=== PATIENT | male | born 1955 | race African-American/Black ===

== ENCOUNTER 2017-10-19 12:29 | Inpatient (IN) | payer BC ==
[~2017-10-19] VITALS: Ht 185.4 cm; Wt 106.6 kg
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
--- NOTE | ~2017-10-19 | CNG ---
[facility] [place] [address] CYTO-NONGYN REPORT PROCEDURE Name: ANUJ RAMIREZ Room #: 418-P ADM IN M.R.#: [id number] Admission: 10/19/17 Date of : 57 Discharge: Report #: [id number] Path Case #: [id number] CYTOPATHOLOGY REPORT COLLECTION DATE: 10/22/2017 RECEIVED DATE: 10/24/2017 SUBMITTING PHYS: Dr. Fadi Agarwal OTHER PHYS: Rickey Ibarra Dr. CLINICAL HISTORY: CAP, sepsis, LLL pneumonia SPECIMEN(S) RECEIVED: A.Sputum * * * * * * * * * * * * FINAL DIAGNOSIS: A. Sputum: - No malignant epithelial cells identified. Squamous epithelial cells and macrophages present. A properly controlled GMS stain is negative for Pneumocystis and negative for fungal elements. PATHOLOGIST: Irasema Andrade M.D. REPORT ELECTRONICALLY SIGNED BY: Irasema Andrade M.D. DATE/TIME: 10/25/2017 11:23 * * * * * * * * * * * * GROSS PATHOLOGY: A. Sputum: The specimen is submitted unfixed , labeled "Ana María Ramirezolph". Received by the Cytology Department is five mL of cloudy colorless fluid. One ThinPrep slide for pap stain and one ThinPrep slide for silver stain were prepared. (lg2.) CERTIFIED BREASTFEEDING EDUCATOR(S): DRAKE Resendez(ASCP)IAC INITIAL CPT CODE(S): A; 78580, 88363 Professional services performed by [facility] at [facility] [address], [place] [address] Technical services performed by [facility] at [address] [place] [address], [address] [address]. [facility] [address] [place] [address] CYTO-NONGYN REPORT PROCEDURE Name: ANUJ RAMIREZ Room #: 418-P ADM IN M.R.#: [id number] Admission: 10/19/17 Date of : 57 Discharge: Report #: [id number] Path Case #: [id number] [facility], [address] [place] [address] PHONE: [phone] DIRECTOR: Alek Quintero M.D. * * * END OF REPORT * * *
--- NOTE | ~2017-10-19 | CNG ---
[facility] [place] [address] CYTO-NONGYN REPORT PROCEDURE Name: JUAN JOSE RAMIREZ Room #: 418-P ADM IN M.R.#: [id number] Admission: 10/19/17 Date of : 57 Discharge: Report #: [id number] Path Case #: [id number] CYTOPATHOLOGY REPORT COLLECTION DATE: 10/26/2017 RECEIVED DATE: 10/26/2017 SUBMITTING PHYS: Dr. Fadi Agarwal OTHER PHYS: Grzegorz Mckeon M.D. Dr. Joyce Vogt CLINICAL HISTORY: CAP, sepsis, LLL pneumonia SPECIMEN(S) RECEIVED: A.Bronchial wash B.Brushing, CANDE * * * * * * * * * * * * FINAL DIAGNOSIS: A. Bronchial wash: - Atypical cells identified. - Occasional scattered atypical cells, bronchial epithelial cells, alveolar macrophages, and squamous cells present. Properly controlled GMS stain negative for Pneumocystis and negative for fungal elements. B. Brushing, CANDE: - Atypical cells identified. - Paucicellular specimen with rare atypical cells present amongst atypical squamous epithelial cells, bronchial epithelial cells, and scattered acute and chronic inflammatory cells. COMMENT: The patient has a history of "malignant cells identified consistent with adenocarcinoma of pulmonary origin" from a left upper lobe biopsy ([id number]). Clinical, radiographic, and bronchoscopic correlation is required. Newspaper Manager slides are co-reviewed with Dr. Christin Holman. (CLW:; 10/27/2017) PATHOLOGIST: Irasema Andrade M.D. REPORT ELECTRONICALLY SIGNED BY: Irasema Andrade M.D. DATE/TIME: 10/27/2017 15:44 * * * * * * * * * * * * GROSS PATHOLOGY: A. Bronchial wash: The specimen is submitted unfixed, labeled "Juan Jose Ramirez". Received by the Cytology Department is ten mL of cloudy colorless fluid. One ThinPrep slide for pap stain and one [facility] [address] [place] [address] CYTO-NONGYN REPORT PROCEDURE Name: NIRANJAN RAMIREZPH Room #: 418-P [facility] IN .R.#: [id number] Admission: 10/19/17 Date of : 57 Discharge: Report #: [id number] Path Case #: [id number] ThinPrep slide for silver stain were prepared. B. Brushing, CANDE: The specimen is labeled "Juan Jose Ramirez" and consists of one fixed slide. One brush tip in fixative is also submitted and one ThinPrep slide was prepared from this material. (lg 10.26.2017) CONTROL ENGINEER(S): DRAKE Law(ASCP) INITIAL CPT CODE(S): A; 51100, 84030 B; 99068 Professional services performed by [facility] at [facility] [address], [place] [address] Technical services performed by [facility] at [address] [place] [address], [address], [place] [address]. [facility] [address] [facility], [address] [place] [address] PHONE: [phone] DIRECTOR: Alek Quintero M.D. * * * END OF REPORT * * *
--- NOTE | ~2017-10-19 | HC ---
[facility] [place] [address] CONSULTATION Name: ASHLEYKIMBERLESLIE Room #: 418[facility] IN M.R.#: [id number] Admission: 10/19/17 Attend Phys: Grzegorz Mckeon MD Discharge: Date of : 57 Report #: [id number] THIS REPORT FOR: //name// CC: Gaurav Vogt DO PHYSICIAN REQUESTING CONSULT: Grzegorz Mckeon MD PHYSICIAN PROVIDING CONSULT: Luis Juárez MD REASON FOR CONSULTATION: History of stage 3 lung cancer. HISTORY OF PRESENT ILLNESS: The patient is a very pleasant 62-year-old male from the [place] [facility] region who quit smoking in 1992, was diagnosed with an adenocarcinoma of the left upper lobe back in 04/2017. This is an adenocarcinoma. The patient received chemotherapy with concurrent carboplatin, Taxol and radiation therapy from 07/11/2017 through 08/22/2017. He had a CAT scan in 09/2017, which showed good response to therapy, though some early cavitation of this lesion and possible cavitation of a smaller lesion. He began durvalumab immunotherapy for adjuvant therapy on 10/04/2017. About 3-5 days prior to admission, the patient had developed a fever and a cough. Since he has been here, CAT scan of the sinuses shows pansinusitis. He does have some drainage and he is aware of. He also thought there is a possible infection or inflammation, which maybe post-radiation therapy in his chest and also the cavitation of the upper lobe mass. No other definite metastatic disease is seen. I believe those films have already been requested for comparison. The patient is currently on 3 antibiotics including Zosyn, azithromycin and vancomycin. He is still running a temperature last night of 38. REVIEW OF SYSTEMS: The patient denies headache. Does have a fever, he is aware. No chills, no sweats, no weight loss, no sore throat except from coughing. No vision changes. He is aware of sinus pressure. He does have a slight cough, slightly productive, not much, little bit more since he got here. No nausea, no vomiting, no diarrhea, no constipation, no blood in his urine or stool. No skin rash. PAST MEDICAL HISTORY: Notable for the adenocarcinoma stage 3A (T2a N2 M0) cancer. Status post concurrent chemoradiation therapy completed in 08/2017 with initiation of durvalumab in 09/2017. He also has a history of hypertension, history of sinusitis. FAMILY HISTORY: No one else diagnosed with cancer that he is aware of with [address] [place] [address] CONSULTATION Name: ANUJ RAMIREZ Room #: 418-P [facility] IN M.R.#: [id number] Admission: 10/19/17 Attend Phys: Grzegorz Mckeon MD Discharge: Date of : 57 Report #: [id number] regards to mother, father, siblings or children. SOCIAL HISTORY: Quit smoking in 1992. Minimal alcohol use if I understand. No street drug use. Has worked in the [employer] in [place] [facility] [place] [employer] [facility] [place] [facility] for about 31 years. MEDICATIONS AT HOME: Included metoprolol, allopurinol, oxycodone, diphenhydramine and amlodipine. Here in the hospital, his current medications include ibuprofen 400 mg q.8 h. p.r.n., Zosyn 3.375 q.6 h., vancomycin 1 gram q.12 h., azithromycin 500 mg daily, metoprolol 50 daily, sucret type lozenges q.2 h. p.r.n., allopurinol 100 mg daily, Lovenox 40 mg at bedtime, Tylenol p.r.n., hydrocodone p.r.n., Zofran p.r.n. He also was begun on Tamiflu. LABORATORY REVIEW: Here shows a BUN of 13, creatinine of 1.1. Liver functions normal with an AST of 23, ALT of 15. Albumin 2.7. White count on admission 2.5, is currently 1.5; hemoglobin 10.5; MCV 102.2; platelets 102. Differential had metamyelocytes and atypical lymphocytes, ANC today is 0.6. Some other TB spot tests are pending. A respiratory viral PCR is pending. Histo tests are pending. ASSESSMENT AND PLAN: 1. History of stage 3A adenocarcinoma of the left upper lung, status post concurrent chemoradiation therapy completed in 08/2017, now on durvalumab, not known to be progressive or recurrent. 2. Febrile illness with cavitary lung lesion and pansinusitis on 3 antibiotics. Culture is pending. No tentative plans for bronchoscopy on Tuesday, if not better. 3. Worsening cytopenia, may be related to viral illness, especially given atypical lymphocytes on smear. We will have the patient be on protective isolation and continue monitoring. 4. Hypertension. Continues medications. 5. Possible gout. We will need to clarify. Continues allopurinol. 6. Cavitary lung lesion. Note additional workup underway. We will follow with you. <ELECTRONICALLY SIGNED> By: Luis Juárez MD 10/23/17 0814 1 2209 Luis Juárez MD /inocente
[~2017-10-19 12:29] MED LIST: ALLOPURINOL 10100 M1 PO; ALLOPURINOL 10100 M2 PO; ALLOPURINOL 30300 M1 PO; AMLODIPINE BESYL5 M1 PO; AMOXICILLIN 50500 M1 PO; BENADRYL25 MG PO; COZAAR 25 MG TA25 M1 PO; HYDROXY-CUT PO; LEVOFLOXACIN500 MG PO; LISINOPRIL10 MG PO; MULTI VITAMIN1 EACH PO; PERCOCET PO; PHENERGAN 25 MG25 M1 PO
[2017-10-19 12:36] VITALS: BP 132/90
[2017-10-19] MEDS ORDERED: TOPROL XL50 MG PO (13:05)
[2017-10-19 13:51] LABS: HEMATOCRIT 30.1 % (42.0-52.0); HEMOGLOBIN 10.4 gm/dL (14.0-18.0); MCH 35.7 pg (26.0-34.0); MCHC 34.6 g/dL (28.0-37.0); MCV 103.1 fL (80.0-100.0); PLATELET COUNT 117 thou/uL (150-400); RBC 2.92 mil/uL (4.50-6.00); RDW 14.6 % (10.5-14.5); WBC 2.5 thou/uL (4.0-11.0)
[2017-10-19 14:03] LABS: CALCIUM 8.7 mg/dL (8.5-10.1); CREATININE 1.2 mg/dL (0.7-1.3); POTASSIUM 3.8 mmol/L (3.5-5.1)
[2017-10-19 14:09] LABS: ALBUMIN 3.1 g/dL (3.4-5.0); TOTAL BILIRUBIN 0.5 mg/dL (<0.1-1.0); TOTAL PROTEIN 6.5 g/dL (6.4-8.2)
[2017-10-19 14:41] LABS: ABSOLUTE NEUTROPHILS 1.2 thou/uL (1.4-8.2)
[2017-10-19 14:42] LABS: ANISOCYTOSIS 1+; PLATELET ESTIMATE NORMAL
[2017-10-19 15:21] VITALS: BP 113/78
[2017-10-19 15:50] VITALS: BP 118/64
[2017-10-19 16:07] VITALS: BP 116/76
[2017-10-19 19:26] VITALS: BP 125/79
[2017-10-20 03:51] VITALS: BP 114/69
[2017-10-20 05:23] LABS: HEMATOCRIT 28.6 % (42.0-52.0); HEMOGLOBIN 9.9 gm/dL (14.0-18.0); MCH 35.6 pg (26.0-34.0); MCHC 34.5 g/dL (28.0-37.0); MCV 103.4 fL (80.0-100.0); RBC 2.77 mil/uL (4.50-6.00); RDW 14.5 % (10.5-14.5); WBC 2.5 thou/uL (4.0-11.0)
[2017-10-20 05:43] LABS: ALBUMIN 2.7 g/dL (3.4-5.0); CALCIUM 8.6 mg/dL (8.5-10.1); CREATININE 1.1 mg/dL (0.7-1.3); POTASSIUM 3.7 mmol/L (3.5-5.1); TOTAL BILIRUBIN 0.4 mg/dL (<0.1-1.0); TOTAL PROTEIN 5.9 g/dL (6.4-8.2)
[2017-10-20 07:20] VITALS: BP 100/66
[2017-10-20 13:55] VITALS: BP 120/68
[2017-10-20 19:22] VITALS: BP 107/72
[2017-10-21 04:19] VITALS: BP 118/70
[2017-10-21 05:01] LABS: MCV 103.5 fL (80.0-100.0); WBC 2.9 thou/uL (4.0-11.0)
[2017-10-21 05:03] LABS: HEMATOCRIT 29.6 % (42.0-52.0); HEMOGLOBIN 10.4 gm/dL (14.0-18.0); MCH 36.3 pg (26.0-34.0); PLATELET COUNT 113 thou/uL (150-400); RBC 2.86 mil/uL (4.50-6.00); RDW 14.3 % (10.5-14.5)
[2017-10-21 06:59] LABS: ABSOLUTE NEUTROPHILS 1.5 thou/uL (1.4-8.2); ANISOCYTOSIS 1+; ATYPICAL LYMPHS 1 %; LARGE PLATELETS RARE; MACROCYTES 1+; METAMYELOCYTES 1 %; POLYCHROMASIA OCCASIONAL
[2017-10-21 07:43] VITALS: BP 111/73
[2017-10-21 16:08] VITALS: BP 99/64
[2017-10-21 19:41] VITALS: BP 108/64
[2017-10-22] VITALS: BP 113/69; BP 77/45
[2017-10-22 04:15] VITALS: BP 97/66
[2017-10-22 06:28] LABS: HEMATOCRIT 30.1 % (42.0-52.0); HEMOGLOBIN 10.5 gm/dL (14.0-18.0); MCH 35.8 pg (26.0-34.0); MCHC 35.1 g/dL (28.0-37.0); MCV 102.2 fL (80.0-100.0); PLATELET COUNT 102 thou/uL (150-400); RBC 2.94 mil/uL (4.50-6.00); RDW 14.7 % (10.5-14.5)
[2017-10-22 06:30] LABS: WBC 1.5 thou/uL (4.0-11.0)
[2017-10-22 08:00] VITALS: BP 105/79
[2017-10-22 08:34] LABS: ABSOLUTE NEUTROPHILS 0.6 thou/uL (1.4-8.2); ANISOCYTOSIS 1+; ATYPICAL LYMPHS 2 %; METAMYELOCYTES 2 %
[2017-10-22 15:56] VITALS: BP 111/66
[2017-10-22 19:35] VITALS: BP 116/79
[2017-10-23 03:20] VITALS: BP 95/59
[2017-10-23 05:47] LABS: ALBUMIN 2.5 g/dL (3.4-5.0); CALCIUM 8.7 mg/dL (8.5-10.1); POTASSIUM 3.8 mmol/L (3.5-5.1); TOTAL BILIRUBIN 0.4 mg/dL (<0.1-1.0); TOTAL PROTEIN 5.7 g/dL (6.4-8.2)
[2017-10-23 07:55] VITALS: BP 105/72
[2017-10-23 15:43] VITALS: BP 96/67
[2017-10-23 19:45] VITALS: BP 103/60
[2017-10-23 21:44] LABS: T-SPOT.TB Negative
[2017-10-24 03:14] VITALS: BP 99/42
[2017-10-24 05:37] LABS: HEMATOCRIT 28.5 % (42.0-52.0); MCH 35.5 pg (26.0-34.0); MCV 101.6 fL (80.0-100.0); PLATELET COUNT 108 thou/uL (150-400); RDW 14.7 % (10.5-14.5)
[2017-10-24 05:52] LABS: ALBUMIN 2.5 g/dL (3.4-5.0); CALCIUM 8.6 mg/dL (8.5-10.1); CREATININE 1.1 mg/dL (0.7-1.3); POTASSIUM 3.6 mmol/L (3.5-5.1); TOTAL BILIRUBIN 0.4 mg/dL (<0.1-1.0); TOTAL PROTEIN 6.1 g/dL (6.4-8.2)
[2017-10-24 07:27] VITALS: BP 88/56
[2017-10-24 08:55] LABS: PLATELET ESTIMATE DECREASED
[2017-10-24 19:27] VITALS: BP 115/74
[2017-10-24 21:09] LABS: HISTOPLASMA MYCELIAL-ID Negative (Negative)
[2017-10-25 02:59] VITALS: BP 107/74
[2017-10-25 03:06] LABS: ADENOVIRUS Positive (Negative); INFLUENZA A Negative (Negative); INFLUENZA B Negative (Negative); METAPNEUMOVIRUS Negative (Negative); PARAINFLUENZA 1 Negative (Negative); PARAINFLUENZA 2 Negative (Negative); PARAINFLUENZA 3 Negative (Negative); RHINOVIRUS Negative (Negative); RSV A Negative (Negative); RSV B Negative (Negative)
[2017-10-25 04:47] LABS: HEMOGLOBIN 10.4 gm/dL (14.0-18.0)
[2017-10-25 04:49] LABS: HEMATOCRIT 29.6 % (42.0-52.0); MCH 35.4 pg (26.0-34.0); MCHC 35.2 g/dL (28.0-37.0); MCV 100.6 fL (80.0-100.0); PLATELET COUNT 118 thou/uL (150-400); RBC 2.94 mil/uL (4.50-6.00); RDW 14.4 % (10.5-14.5)
[2017-10-25 05:01] LABS: WBC 1.6 thou/uL (4.0-11.0)
[2017-10-25 06:31] LABS: ABSOLUTE NEUTROPHILS 0.6 thou/uL (1.4-8.2)
[2017-10-25 08:21] VITALS: BP 107/67
[2017-10-25 12:40] VITALS: BP 103/71
[2017-10-25 17:32] VITALS: BP 104/70
[2017-10-25 19:30] VITALS: BP 112/69
[2017-10-26] VITALS: BP 96/52
[2017-10-26 04:34] LABS: BASOPHILS 0.3 % (0.0-2.0); EOSINOPHILS 0.3 % (0.0-3.0); HEMATOCRIT 29.2 % (42.0-52.0); HEMOGLOBIN 10.1 gm/dL (14.0-18.0); LYMPHOCYTES 45.2 % (24.0-44.0); MCHC 34.6 g/dL (28.0-37.0); MCV 100.9 fL (80.0-100.0); MONOCYTES 13.8 % (1.0-8.0); PLATELET COUNT 121 thou/uL (150-400); POLYS 40.4 % (36.0-66.0); RBC 2.89 mil/uL (4.50-6.00); RDW 14.2 % (10.5-14.5); WBC 2.5 thou/uL (4.0-11.0)
[2017-10-26 05:22] LABS: ATYPICAL LYMPHS 1 %
[2017-10-26 05:23] VITALS: BP 105/71
[2017-10-26 05:23] LABS: LARGE PLATELETS OCCASIONAL
[2017-10-26 09:45] VITALS: BP 118/83
[2017-10-26 17:00] VITALS: BP 101/66
[2017-10-26 20:21] VITALS: BP 106/56
[2017-10-27 04:00] VITALS: BP 91/61
[2017-10-27 04:06] LABS: HEMATOCRIT 29.5 % (42.0-52.0); HEMOGLOBIN 10.2 gm/dL (14.0-18.0); MCH 34.6 pg (26.0-34.0); MCHC 34.5 g/dL (28.0-37.0); MCV 100.2 fL (80.0-100.0); PLATELET COUNT 130 thou/uL (150-400); RBC 2.95 mil/uL (4.50-6.00); RDW 13.8 % (10.5-14.5); WBC 2.1 thou/uL (4.0-11.0)
[2017-10-27 05:18] LABS: ABSOLUTE NEUTROPHILS 1.1 thou/uL (1.4-8.2); ATYPICAL LYMPHS 2 %
[2017-10-27 07:13] VITALS: BP 117/75
[2017-10-27 16:00] VITALS: BP 100/63
[2017-10-27 20:00] VITALS: BP 94/52
[2017-10-27 23:32] VITALS: BP 101/68
[2017-10-28 04:25] VITALS: BP 109/70
[2017-10-28 08:53] LABS: HEMATOCRIT 32.8 % (42.0-52.0); HEMOGLOBIN 11.4 gm/dL (14.0-18.0); MCH 34.5 pg (26.0-34.0); MCHC 34.7 g/dL (28.0-37.0); MCV 99.4 fL (80.0-100.0); PLATELET COUNT 135 thou/uL (150-400); RDW 14.3 % (10.5-14.5); WBC 2.2 thou/uL (4.0-11.0)
[2017-10-28 09:27] LABS: ABSOLUTE NEUTROPHILS 0.7 thou/uL (1.4-8.2)
[2017-10-28 09:28] LABS: PLATELET ESTIMATE NORMAL
[2017-10-28 20:14] VITALS: BP 113/72
[2017-10-29 03:54] VITALS: BP 94/65
[2017-10-29 06:51] LABS: HEMATOCRIT 28.2 % (42.0-52.0); HEMOGLOBIN 10.1 gm/dL (14.0-18.0); MCH 35.3 pg (26.0-34.0); RBC 2.85 mil/uL (4.50-6.00)
[2017-10-29 06:53] LABS: MCHC 35.7 g/dL (28.0-37.0); MCV 98.7 fL (80.0-100.0); RDW 14.2 % (10.5-14.5)
[2017-10-29 07:05] VITALS: BP 113/76
[2017-10-29 07:14] LABS: WBC 1.7 thou/uL (4.0-11.0)
[2017-10-29 14:53] VITALS: BP 101/66
[2017-10-29 20:00] VITALS: BP 109/64
[2017-10-30 04:00] VITALS: BP 113/78
[2017-10-30 06:05] LABS: PLATELET COUNT 126 thou/uL (150-400)
[2017-10-30 06:11] LABS: HEMATOCRIT 27.7 % (42.0-52.0); HEMOGLOBIN 9.9 gm/dL (14.0-18.0); MCH 35.2 pg (26.0-34.0); MCHC 35.6 g/dL (28.0-37.0); MCV 98.7 fL (80.0-100.0); RDW 14.7 % (10.5-14.5)
[2017-10-30 06:15] LABS: WBC 1.6 thou/uL (4.0-11.0)
[2017-10-30 06:19] LABS: CREATININE 0.9 mg/dL (0.7-1.3); POTASSIUM 3.6 mmol/L (3.5-5.1)
[2017-10-30 06:24] LABS: CALCIUM 8.8 mg/dL (8.5-10.1)
[2017-10-30 07:44] VITALS: BP 106/72
[2017-10-30 09:36] LABS: ABSOLUTE NEUTROPHILS 0.8 thou/uL (1.4-8.2); ANISOCYTOSIS 1+; ATYPICAL LYMPHS 2 %
[2017-10-30 09:37] LABS: PLATELET ESTIMATE DECREASED
[2017-10-30 15:19] VITALS: BP 94/62
[2017-10-30 19:35] VITALS: BP 101/70
[2017-10-31 04:00] VITALS: BP 107/73
[2017-10-31 05:26] LABS: HEMATOCRIT 28.6 % (42.0-52.0); MCH 34.5 pg (26.0-34.0); MCV 98.5 fL (80.0-100.0); RBC 2.91 mil/uL (4.50-6.00); RDW 14.3 % (10.5-14.5)
[2017-10-31 05:32] LABS: WBC 1.7 thou/uL (4.0-11.0)
[2017-10-31 07:05] VITALS: BP 93/65
[2017-10-31 08:23] LABS: % SATURATION 29 % (20-39); IRON 43 ug/dL (65-175); TIBC 150 ug/dL (250-450)
[2017-10-31 10:23] LABS: FOLIC ACID 20.2 ng/mL (8.6-58.9)
[2017-10-31 15:36] VITALS: BP 96/63
[2017-10-31 19:20] VITALS: BP 99/66
[2017-11-01 04:15] VITALS: BP 105/63
[2017-11-01 07:51] VITALS: BP 110/73
[2017-11-01 17:29] VITALS: BP 141/116
[2017-11-01 17:47] VITALS: BP 111/74
[2017-11-01 20:00] VITALS: BP 107/70
[2017-11-02 04:00] VITALS: BP 116/74
[2017-11-02 07:55] VITALS: BP 98/63
[2017-11-02 11:07] LABS: ANTI-DNA SCREEN <1 IU/mL (0-9); ANTI-RNP 0.2 AI (0.0-0.9)
[2017-11-02 15:20] VITALS: BP 107/70
[2017-11-02 20:00] VITALS: BP 104/72
[2017-11-03 04:30] VITALS: BP 91/57
[2017-11-03 05:59] LABS: HEMOGLOBIN 10.2 gm/dL (14.0-18.0)
[2017-11-03 06:01] LABS: HEMATOCRIT 29.3 % (42.0-52.0); MCH 34.6 pg (26.0-34.0); MCHC 34.8 g/dL (28.0-37.0); MCV 99.5 fL (80.0-100.0); PLATELET COUNT 150 thou/uL (150-400); RBC 2.94 mil/uL (4.50-6.00); RDW 14.2 % (10.5-14.5)
[2017-11-03 06:04] LABS: WBC 1.9 thou/uL (4.0-11.0)
[2017-11-03 08:37] VITALS: BP 103/71
[2017-11-03 08:45] LABS: ABSOLUTE NEUTROPHILS 0.9 thou/uL (1.4-8.2)
[2017-11-03 08:46] LABS: ANISOCYTOSIS 1+
[2017-11-03] MEDS ORDERED: AZITHROMYCIN 2250 MG PO (12:46)
[2017-11-03] MEDS ORDERED: DIPHENHIST25 M1 PO (12:46)
[2017-11-03] MEDS ORDERED: OSELB75 PO (12:46)
[2017-11-03] MEDS ORDERED: CEPACOL SORE T1 EAC8 PO (12:46)
[2017-11-03] MEDS ORDERED: CEFDINIR300 MG PO (12:46)
[2017-11-03] MEDS ORDERED: MUCINEX600 MG PO (12:46)
[2017-11-03] MEDS ORDERED: TYLENOL325 MG PO (12:46)
[2017-11-03] MEDS ORDERED: PEPCID20 MG PO (12:46)
[2017-11-03] MEDS ORDERED: PREDNISONE 10 M10 MG PO (12:46)
[2017-11-03 13:13] VITALS: BP 103/71
== END 2017-11-03 14:25 | disposition home or self-care (01) | DRG 871 ==
LOC: ER 12:29 → 4E 14:19 → EROBS 14:19 → 4E 15:13 → ENTRNSPT 11-03 13:58 → EDTRNSPTSTS 11-03 14:24 → 4E 11-03 14:25
PROVIDERS: Hospitalist; Internal Medicine Hematology & Oncology; Internal Medicine Pulmonary Disease; Nurse Practitioner; Specialist
PROC: 0BD88ZX Extraction of Left Upper Lobe Bronchus, Via Natural or Artificial Opening Endoscopic, Diagnostic (ICD-10-PCS; principal; 2017-10-26)
DX: A41.9 Sepsis, unspecified organism (principal); J10.08 Influenza due to other identified influenza virus with other specified pneumonia; J12.0 Adenoviral pneumonia; D61.818 Other pancytopenia; E46 Unspecified protein-calorie malnutrition; C34.12 Malignant neoplasm of upper lobe, left bronchus or lung; I10 Essential (primary) hypertension; D75.9 Disease of blood and blood-forming organs, unspecified; J32.4 Chronic pansinusitis; R91.8 Other nonspecific abnormal finding of lung field; M10.9 Gout, unspecified; Z79.899 Other long term (current) drug therapy; Z87.891 Personal history of nicotine dependence; Z68.31 Body mass index [BMI] 31.0-31.9, adult; Z92.3 Personal history of irradiation; Z92.21 Personal history of antineoplastic chemotherapy
CPT/HCPCS: 10783

== ENCOUNTER 2018-03-30 10:16 | Emergency (ER) | payer BC ==
[~2018-03-30] VITALS: Ht 185.4 cm; Wt 108.0 kg
[~2018-03-30 10:16] MED LIST changes: +AZITHROMYCIN 2250 MG PO; +CEFDINIR300 MG PO; +CEPACOL SORE T1 EAC8 PO; +DIPHENHIST25 M1 PO; +MUCINEX600 MG PO; +OSELB75 PO; +PEPCID20 MG PO; +PREDNISONE 10 M10 MG PO; +TOPROL XL50 MG PO; +TYLENOL325 MG PO
[2018-03-30 11:05] LABS: HEMATOCRIT 36.1 % (42.0-52.0); HEMOGLOBIN 12.7 gm/dL (14.0-18.0); MCH 35.4 pg (26.0-34.0); MCHC 35.1 g/dL (28.0-37.0); MCV 100.8 fL (80.0-100.0); RBC 3.58 mil/uL (4.50-6.00); RDW 14.5 % (10.5-14.5); WBC 2.9 thou/uL (4.0-11.0)
[2018-03-30 11:08] LABS: CALCIUM 9.4 mg/dL (8.5-10.1); CREATININE 1.3 mg/dL (0.7-1.3)
[2018-03-30 12:06] LABS: ABSOLUTE NEUTROPHILS 1.9 thou/uL (1.4-8.2); PLATELET COUNT 88 thou/uL (150-400); PLATELET ESTIMATE DECREASED
[2018-03-30] MEDS ORDERED: LEVAQUIN 500 M500 MG PO (12:36)
[2018-03-30] MEDS ORDERED: PROMETH-CODEIN 65 ML PO (12:36)
== END 2018-03-30 12:49 | disposition home or self-care (01) ==
LOC: ER 10:16
PROVIDERS: Emergency Medicine
DX: J20.9 Acute bronchitis, unspecified (principal); D69.6 Thrombocytopenia, unspecified; I10 Essential (primary) hypertension; M10.9 Gout, unspecified; Z85.118 Personal history of other malignant neoplasm of bronchus and lung

== ENCOUNTER → 2018-06-20 | Outpatient (CLI) | payer BC ==
[~2018-06-20] MED LIST changes: +LEVAQUIN 500 M500 MG PO; +PROMETH-CODEIN 65 ML PO
== END ==
LOC: RAD 14:11
DX: C34.12 Malignant neoplasm of upper lobe, left bronchus or lung (principal); R05 Cough; R91.8 Other nonspecific abnormal finding of lung field; M47.814 Spondylosis without myelopathy or radiculopathy, thoracic region; I10 Essential (primary) hypertension

== ENCOUNTER 2018-11-07 16:02 | Inpatient (IN) | payer BC ==
[~2018-11-07] VITALS: Ht 185.4 cm; Wt 113.0 kg
--- NOTE | ~2018-11-07 | P ---
[facility] [place] [address] PROCEDURE REPORT Name: ANUJ RAMIREZ Room #: [address] [place] [address] IN M.R.#: [id number] Admission: 11/07/18 ������������������ Attend Phys: Rock Arrington MD Discharge: 11/09/18 ������������������ Date of : 57 Report #: [id number] THIS REPORT FOR: //name// CC: Yo Reed MD DATE OF SERVICE: 11/09/2018 DIAGNOSTIC COLONOSCOPY: The patient of Joyce Vogt DO and Rock Arrington MD. INDICATION FOR PROCEDURE: Painless hematochezia of undetermined etiology. DESCRIPTION OF PROCEDURE: Informed consent for this procedure was obtained prior to the administration of any medication. The risks which include but are not limited to bleeding, perforation, infection, complications of sedation and the possibility I could miss something were explained to the patient and he has indicated his consent by signing. Anesthesia kindly provided deep sedation for this procedure. With the patient in the left lateral decubitus position, a digital rectal exam was performed and there were no palpable abnormalities. Then, the Olympus colonoscope was introduced through the anal sphincter and advanced under direct visualization to the terminal ileum. Findings are noted on withdrawal of the scope. The terminal ileal mucosa appears normal. The cecum appears normal. There was some retained stool in the cecum that was able to be cleared by the scope for good visualization. In the proximal ascending colon, there are multiple uncomplicated diverticula noted. None of them appear to have been bleeding recently. There is no blood in the entire colon. The more distal ascending colonic mucosa appears normal. Hepatic flexure, normal mucosa. Transverse colon, normal mucosa. Splenic flexure, normal mucosa. Descending colon, normal mucosa. Sigmoid colon, normal mucosa. Rectum, normal mucosa. There are several large internal hemorrhoidal veins. Retroflex view did not reveal any further abnormalities. Scope was slowly withdrawn through the anal canal and there was a single external hemorrhoid that may have been the source of some hematochezia. The scope was withdrawn. The patient went to the recovery area in stable condition. He tolerated the procedure well. IMPRESSION: 1. Uncomplicated right-sided diverticulosis. 2. Single uncomplicated external hemorrhoid, which may have been the source of [address] [address] PROCEDURE REPORT Name: NIRANJAN RAMIREZPH Room #: [facility] DIS IN M.R.#: [id number] Admission: 11/07/18 ������������������ Attend Phys: Rock Arrington MD Discharge: 11/09/18 ������������������ Date of : 57 Report #: [id number] the hematochezia. Other than that, normal colonoscopic exam to the terminal ileum. Recommendations are for him to be on a high fiber diet. He should also take stool softeners every day, so that we do not aggravate this external hemorrhoid any further and cause it to bleed. Thank you very much once again for allowing me to participate in his care. ��������������������������������������������� ���������������������������������������� By: ��������������������������������������������� 1127 0125 Haydee Mead DO /nt
[2018-11-07 16:06] VITALS: BP 138/83
[2018-11-07 16:26] LABS: HEMATOCRIT 35.5 % (42.0-52.0); HEMOGLOBIN 12.3 gm/dL (14.0-18.0); MCH 35.8 pg (26.0-34.0); MCHC 34.6 g/dL (28.0-37.0); MCV 103.7 fL (80.0-100.0); PLATELET COUNT 135 thou/uL (150-400); RBC 3.43 mil/uL (4.50-6.00); RDW 16.5 % (10.5-14.5); WBC 5.2 thou/uL (4.0-11.0)
[2018-11-07 16:32] LABS: CALCIUM 9.7 mg/dL (8.5-10.1); CREATININE 1.3 mg/dL (0.7-1.3); POTASSIUM 3.8 mmol/L (3.5-5.1)
[2018-11-07 16:38] LABS: ALBUMIN 3.6 g/dL (3.4-5.0); TOTAL BILIRUBIN 0.6 mg/dL (<0.1-1.0); TOTAL PROTEIN 8.1 g/dL (6.4-8.2)
[2018-11-07 16:40] LABS: APTT 27.3 Seconds (24.5-32.8); INR 1.1; PROTIME 11.1 Seconds (9.3-11.4)
[2018-11-07 16:43] LABS: ABSOLUTE NEUTROPHILS 2.4 thou/uL (1.4-8.2); PLATELET ESTIMATE NORMAL
[2018-11-07 16:44] LABS: ANISOCYTOSIS 1+; MACROCYTES 1+
[2018-11-07] MEDS ORDERED: LOPRESSOR50 PO (19:16)
[2018-11-07] MEDS ORDERED: ZYLOPRIM300 MG PO (19:16)
[2018-11-07] MEDS ORDERED: FOLIC ACID1 MG PO (19:16)
[2018-11-07] MEDS ORDERED: ELIQUIS5 MG PO (19:17)
[2018-11-07 22:40] VITALS: BP 112/69
[2018-11-07 22:51] LABS: HEMATOCRIT 31.6 % (42.0-52.0); HEMOGLOBIN 10.9 gm/dL (14.0-18.0)
[2018-11-07 23:17] VITALS: BP 93/53
[2018-11-07 23:44] VITALS: BP 119/86
--- NOTE | 2018-11-08 02:19 | NUR ---
PT ADMITED FROM ED AROUND 2324. VSS. ASSESSMENT CHARTED. PT STATES HAD SOME BRIGHT RED BLOOD IN 2 OF HIS STOOLS TODAY. PT DENIES PAIN, SOA, DIZZINESS, N/V. PT STATED HE IS ON ELIQUIS A PREVENTATIVE FOR BLOOD CLOTS THAT CAN BE CAUSED BY HIS CHEMO WHICH HE TAKES FOR LUNG CANCER, STATES IN THE PAST HE WAS TOLD HE HAD DIVERTICULITS. NPO. SLEEPING WELL. WILL CONTINUE TO MONITOR AND WITH POC.
[2018-11-08 04:55] VITALS: BP 113/63
[2018-11-08 08:29] VITALS: BP 111/68
[2018-11-08 09:02] LABS: HEMATOCRIT 32.5 % (42.0-52.0); HEMOGLOBIN 11.1 gm/dL (14.0-18.0)
[2018-11-08 12:20] VITALS: BP 126/84
[2018-11-08 15:01] VITALS: BP 134/79
--- NOTE | 2018-11-08 17:01 | NUR ---
PT ALERT AND ORIENTED. VSS. DENIED HAVING PAIN OR DISCOMFORT. NPO AFTER MIDNIGHT FOR COLONOSCOPY FOR AM. BOWEL PREP STARTED. NO ACTIVE BLEEDING NOTED WILL CONTINUE TO MONITOR.
[2018-11-08 20:00] VITALS: BP 122/79
[2018-11-08 22:24] LABS: HEMATOCRIT 31.2 % (42.0-52.0); HEMOGLOBIN 10.7 gm/dL (14.0-18.0)
--- NOTE | 2018-11-09 03:53 | NUR ---
ASSUMED PT CARE AT 1900. PT A/OX4, VITALS SIGNS STABLE, ASSESSMENT CHARTED. NO COMPLAINTS OF PAIN. NO EPISODES OF BLEEDING. PT NPO AFTER MIDNIGHT FOR COLONOSCOPY. RESTED WELL THROUGH THE NIGHT. PROGRESSING TOWARD PLAN OF CARE. WILL CONTINUE TO MONITOR.
[2018-11-09 05:18] VITALS: BP 107/70
[2018-11-09 08:00] VITALS: BP 115/74
[2018-11-09 09:20] LABS: HEMOGLOBIN 11.4 gm/dL (14.0-18.0); MCH 35.8 pg (26.0-34.0); MCHC 34.6 g/dL (28.0-37.0); MCV 103.6 fL (80.0-100.0); RBC 3.19 mil/uL (4.50-6.00); RDW 16.5 % (10.5-14.5); WBC 3.5 thou/uL (4.0-11.0)
[2018-11-09 10:31] LABS: CALCIUM 9.4 mg/dL (8.5-10.1)
[2018-11-09 12:00] VITALS: BP 116/80
[2018-11-09 12:58] VITALS: BP 116/80
[2018-11-09 13:01] VITALS: BP 116/80
--- NOTE | 2018-11-09 14:00 | NUR ---
PT HAS HAD NO SIGNS OF BLEEDING THIS SHIFT..HE HAD A COLONOSCOPY @ 1000 AND NO SIGNS OF BLEEDING NOTED..INSTRUCTED ON HIGH FIBER DIET AND STOOL SOFTNERS RE HEMRRHOIDS..
== END 2018-11-09 13:58 | disposition home or self-care (01) | DRG 393 ==
LOC: ER 16:02 → EROBS 19:28 → 2N 19:28 → ENTRNSPT 11-09 13:41 → EDTRNSPTSTS 11-09 13:43 → 2N 11-09 13:58
PROVIDERS: Emergency Medicine; Internal Medicine Gastroenterology; Nurse Practitioner Acute Care; ADMIT Internal Medicine
PROC: 0DJD8ZZ Inspection of Lower Intestinal Tract, Via Natural or Artificial Opening Endoscopic (ICD-10-PCS; principal; 2018-11-09)
DX: K64.9 Unspecified hemorrhoids (principal); N17.0 Acute kidney failure with tubular necrosis; C34.90 Malignant neoplasm of unspecified part of unspecified bronchus or lung; I10 Essential (primary) hypertension; M10.9 Gout, unspecified; K64.4 Residual hemorrhoidal skin tags; Z86.711 Personal history of pulmonary embolism; Z87.891 Personal history of nicotine dependence; Z86.010 Personal history of colon polyps; Z87.01 Personal history of pneumonia (recurrent); Z79.899 Other long term (current) drug therapy; K57.90 Diverticulosis of intestine, part unspecified, without perforation or abscess without bleeding
CPT/HCPCS: 10081; 62110; 62900

== ENCOUNTER 2018-12-30 21:29 | Emergency (ER) | payer BC ==
[~2018-12-30] VITALS: Ht 182.9 cm; Wt 111.1 kg
[~2018-12-30 21:29] MED LIST changes: +ELIQUIS5 MG PO; +FOLIC ACID1 MG PO; +LOPRESSOR50 PO; +ZYLOPRIM300 MG PO
[2018-12-30 22:29] LABS: URINE BILIRUBIN NEGATIVE (Negative); URINE BLOOD 1+ (Negative); URINE CLARITY CLEAR; URINE COLOR YELLOW; URINE GLUCOSE-RANDOM* NEGATIVE (Negative); URINE KETONES NEGATIVE (Negative); URINE LEUKOCYTES-REFLEX NEGATIVE (Negative); URINE NITRITE-REFLEX NEGATIVE (Negative); URINE PROTEIN (DIPSTICK) NEGATIVE (Negative)
[2018-12-30 22:44] LABS: SQUAMOUS 0-3 Few /LPF (0-3)
[2018-12-30 22:45] LABS: BACTERIA-REFLEX None Seen /HPF (None Seen); CASTS None Seen /LPF (None Seen); CRYSTALS None Seen /LPF (None Seen); MUCUS None Seen strn/LPF (None Seen); URINE RBC 0-2 Rare /HPF (0-2); URINE WBC-REFLEX None Seen /HPF (0-5)
[2018-12-30 23:17] LABS: HEMATOCRIT 33.7 % (42.0-52.0); HEMOGLOBIN 11.5 gm/dL (14.0-18.0); MCH 34.7 pg (26.0-34.0); MCHC 34.3 g/dL (28.0-37.0); MCV 101.3 fL (80.0-100.0); PLATELET COUNT 68 thou/uL (150-400); RBC 3.32 mil/uL (4.50-6.00); RDW 15.2 % (10.5-14.5); WBC 3.3 thou/uL (4.0-11.0)
[2018-12-30 23:29] LABS: ANION GAP 8 mmol/L (7-16); BUN 15 mg/dL (7-18); CHLORIDE 99 mmol/L (98-107); CO2 29 mmol/L (21-32); CREATININE 1.2 mg/dL (0.7-1.3); GLUCOSE 114 mg/dL (74-106); SODIUM 136 mmol/L (136-145)
[2018-12-30 23:41] LABS: ALBUMIN 3.4 g/dL (3.4-5.0); MAGNESIUM 1.6 mg/dL (1.8-2.4); SGOT 78 U/L (15-37); SGPT 79 U/L (30-65); TOTAL BILIRUBIN 1.5 mg/dL (<0.1-1.0); TOTAL PROTEIN 6.8 g/dL (6.4-8.2); TROPONIN-I <0.06 ng/mL (<0.06)
[2018-12-30 23:43] LABS: ABSOLUTE NEUTROPHILS 1.1 thou/uL (1.4-8.2); PLATELET ESTIMATE DECREASED
[2018-12-31 01:27] VITALS: BP 114/72
--- NOTE | 2018-12-31 10:36 | EKG ---
[place] [address] [facility] [place] [address] ELECTROCARDIOGRAM REPORT Name: ANUJ RAMIREZ Room #: DEP BRYAN Galdamez#: [id number] ������������������ Admission: 12/30/18 ������������������ Attend Phys: Discharge: 12/31/18 ������������������ Date of : 57 Report #: [id number] ����������������������������������������������������������������� [id number] THIS REPORT FOR: //name// [facility] ED Test Date: 2018-12-30 Test Time: 22:15:21 Pat Name: ANUJ RAMIREZ Department: Room: Gender: Cigarette Catcher: : 1955 Requested By: Lalo Vera Order Number: [id number] MD: Kaiser Sanchez Measurements Intervals [place] Rate: 103 P: 23 SD: 158 QRS: 61 QRSD: 100 T: 59 QT: 350 QTc: 458 Interpretive Statements Sinus tachycardia Compared to ECG 06/03/2015 18:19:19 Sinus bradycardia no longer present Electronically Signed On 12-31-2018 10:36:35 CDT by Kaiser Sanchez [email or web address] ��������������������������������������������� <ELECTRONICALLY SIGNED> ���������������������������������������� By: Kaiser Sanchez MD ��������������������������������������������� 12/31/18 1036 2215 2215 Kaiser Sanchez MD /SVETLANA
== END 2018-12-31 01:27 | disposition home or self-care (01) ==
LOC: ER 21:29
PROVIDERS: Emergency Medicine
DX: E83.42 Hypomagnesemia (principal); C34.90 Malignant neoplasm of unspecified part of unspecified bronchus or lung; R50.9 Fever, unspecified; M10.9 Gout, unspecified; I10 Essential (primary) hypertension; Z92.21 Personal history of antineoplastic chemotherapy; Z86.711 Personal history of pulmonary embolism; Z87.891 Personal history of nicotine dependence

== ENCOUNTER 2019-03-22 23:24 | Inpatient (IN) | payer BC ==
[~2019-03-22] VITALS: Ht 180.3 cm; Wt 109.3 kg
[2019-03-22 23:31] VITALS: BP 120/80
[2019-03-23] VITALS (9 sets, daily range): BP systolic 92–122; BP diastolic 56–81
[2019-03-23] LABS: ABSOLUTE NEUTROPHILS 6.5 thou/uL (1.4-8.2); BASOPHILS 0.8 % (0.0-2.0); EOSINOPHILS 0.1 % (0.0-3.0); HEMATOCRIT 35.6 % (42.0-52.0); LYMPHOCYTES 15.8 % (24.0-44.0); MCH 33.7 pg (26.0-34.0); MCHC 33.7 g/dL (28.0-37.0); MONOCYTES 0.9 % (1.0-8.0); PLATELET COUNT 90 thou/uL (150-400); POLYS 82.4 % (36.0-66.0); RBC 3.56 mil/uL (4.50-6.00); RDW 15.4 % (10.5-14.5); WBC 7.9 thou/uL (4.0-11.0)
[2019-03-23 00:12] LABS: ANION GAP 5 mmol/L (7-16); BUN 20 mg/dL (7-18); CALCIUM 9.1 mg/dL (8.5-10.1); CHLORIDE 104 mmol/L (98-107); CO2 31 mmol/L (21-32); CREATININE 1.1 mg/dL (0.7-1.3); GLUCOSE 88 mg/dL (74-106); POTASSIUM 3.9 mmol/L (3.5-5.1); SODIUM 140 mmol/L (136-145)
[2019-03-23 00:13] LABS: APTT 23.9 Seconds (24.5-32.8); PROTIME 10.8 Seconds (9.3-11.4)
[2019-03-23 00:20] LABS: TROPONIN-I <0.06 ng/mL (<0.06)
--- NOTE | 2019-03-23 03:12 | NUR ---
ASSESSMENT: PT ARRIVED TO THE UNIT AT APPROXIMATELY 0200 FROM ED ACCOMPANIED BY STAFF. PT IS ALERT AND ORIENT TIMES FOUR. DENIES PAIN, UP AD EARLINE. DENIES ANY FURTHER RECTAL BLEEDING. VSS, LOW GRADE TEMP 99.0. IV SALINE LOCKED, DID RECEIVE I LITER OF NS BOLUS. SR PER MONITOR. GI CONSULT PENDING. RA WITH CLEAR BREATH SOUNDS. HGB = 12.0 T&S IN ED, BLOOD PRODUCT CONSENT ON CHART, NOT SIGHNED. NO ORDERS FOR BLOOD TRANSFUSION. SLOW PROGRESS, WILL CONTINUE TO MONITOR.
[2019-03-23 06:54] LABS: HEMATOCRIT 33.1 % (42.0-52.0); HEMOGLOBIN 11.3 gm/dL (14.0-18.0)
[2019-03-23 12:08] LABS: HEMATOCRIT 33.7 % (42.0-52.0); HEMOGLOBIN 11.5 gm/dL (14.0-18.0)
--- NOTE | 2019-03-23 12:15 | NUR ---
ASSESSMENT: CM REVIEWED CHART AND MET WITH PATIENT AT THE BEDSIDE. PT IS LIKELY DISCHARGE TODAY. PT REPORTS HE IS FULLY INDEPENDENT WITH ADLS AND AMBULATION AND WILL HAVE NO NEEDS FROM CM.
[2019-03-23] MEDS ORDERED: HYDROCORTISONE3011 RECTAL (14:37)
--- NOTE | 2019-03-23 20:55 | NUR ---
PATIENT ALERT AND ORIENTED. PATIENT DISCHARGED TO HOME IN STABLE CONDITION WITH ALL PERSONAL BELONGINGS, DISCHARGE ORDERS AND INSTRUCTIONS AND PRESCRIPTION. PATIENT ESCORTED VIA WHEELCHAIR TO PERSONAL VEHICLE.
== END 2019-03-23 16:22 | disposition home or self-care (01) | DRG 378 ==
LOC: ER 23:24 → 3W 03-23 01:03 → EROBS 03-23 01:03 → 3W 03-23 01:54 → ENTRNSPT 03-23 16:00 → 3W 03-23 16:22
PROVIDERS: Emergency Medicine; Nurse Practitioner Acute Care; ADMIT Internal Medicine
DX: K92.2 Gastrointestinal hemorrhage, unspecified (principal); C34.90 Malignant neoplasm of unspecified part of unspecified bronchus or lung; Z86.711 Personal history of pulmonary embolism; K64.9 Unspecified hemorrhoids; M10.9 Gout, unspecified; I10 Essential (primary) hypertension; Z87.891 Personal history of nicotine dependence; Z86.010 Personal history of colon polyps; Z87.01 Personal history of pneumonia (recurrent); Z79.899 Other long term (current) drug therapy
CPT/HCPCS: 10879

== ENCOUNTER 2019-06-25 18:39 | Inpatient (IN) | payer BC ==
[~2019-06-25] VITALS: Ht 180.3 cm; Wt 112.0 kg
[~2019-06-25 18:39] MED LIST changes: +HYDROCORTISONE3011 RECTAL
[2019-06-25 18:40] VITALS: BP 122/81
[2019-06-25] MEDS ORDERED: FOLIC ACID1 MG PO (18:47)
[2019-06-25] MEDS ORDERED: ELIQUIS5 MG PO (18:47)
[2019-06-25 19:45] LABS: URINE BILIRUBIN NEGATIVE (Negative); URINE BLOOD NEGATIVE (Negative); URINE CLARITY CLEAR; URINE COLOR YELLOW; URINE GLUCOSE-RANDOM* NEGATIVE (Negative); URINE KETONES NEGATIVE (Negative); URINE LEUKOCYTES-REFLEX NEGATIVE (Negative); URINE NITRITE-REFLEX NEGATIVE (Negative); URINE PROTEIN (DIPSTICK) NEGATIVE (Negative); URINE SPECIFIC GRAVITY <= 1.005 (1.005-1.035); URINE UROBILINOGEN 0.2 E.U./dl (0.2-1.0)
[2019-06-25 19:46] LABS: ABSOLUTE NEUTROPHILS 5.2 thou/uL (1.4-8.2); BASOPHILS 0.5 % (0.0-2.0); HEMATOCRIT 28.8 % (42.0-52.0); HEMOGLOBIN 9.4 gm/dL (14.0-18.0); LYMPHOCYTES 18.5 % (24.0-44.0); MCH 34.7 pg (26.0-34.0); MCHC 32.5 g/dL (28.0-37.0); MCV 106.6 fL (80.0-100.0); MONOCYTES 8.1 % (1.0-8.0); POLYS 72.9 % (36.0-66.0); RBC 2.71 mil/uL (4.50-6.00); RDW 19.7 % (10.5-14.5); WBC 7.1 thou/uL (4.0-11.0)
[2019-06-25 19:53] LABS: CALCIUM 8.7 mg/dL (8.5-10.1); CREATININE 1.1 mg/dL (0.7-1.3); POTASSIUM 4.1 mmol/L (3.5-5.1)
[2019-06-25 20:07] LABS: PLATELET COUNT 94 thou/uL (150-400)
[2019-06-25 20:08] LABS: ANISOCYTOSIS 1+; MACROCYTES 1+
[2019-06-25 20:10] LABS: ALBUMIN 2.7 g/dL (3.4-5.0); TOTAL BILIRUBIN 0.5 mg/dL (<0.1-1.0); TOTAL PROTEIN 6.1 g/dL (6.4-8.2)
[2019-06-25 21:10] VITALS: BP 120/85
[2019-06-25 21:24] VITALS: BP 117/78
[2019-06-25 21:30] VITALS: BP 115/77
[2019-06-26] VITALS (7 sets, daily range): BP systolic 98–123; BP diastolic 55–75
--- NOTE | 2019-06-26 03:55 | NUR ---
PT ARRIVED UNIT AT 2200. PT A/OX4, VITAL SIGNS STABLE, AFEBRILE, ASSESSMENT CHARTED. NO COMPLAINTS OF PAIN. ASSESSMENT COMPLETED. PT REQUESTED THAT PRIMARY PHYSICIAN AND ONCOLOGY DOCTOR BE CONTACTED IN AM. WILL PLACE CALL OR [facility] TO DAY NURSE. PT RESTED FOR THE REST OF NIGHT. PROGRESSING TOWARD PLAN OF CARE. WILL CONTINUE TO MONITOR.
[2019-06-26 06:02] LABS: HEMATOCRIT 29.5 % (42.0-52.0); HEMOGLOBIN 9.7 gm/dL (14.0-18.0); MCH 34.7 pg (26.0-34.0); MCHC 32.9 g/dL (28.0-37.0); MCV 105.5 fL (80.0-100.0); RBC 2.8 mil/uL (4.50-6.00); RDW 19.5 % (10.5-14.5); WBC 8.3 thou/uL (4.0-11.0)
[2019-06-26 06:13] LABS: CALCIUM 8.8 mg/dL (8.5-10.1); CREATININE 1.1 mg/dL (0.7-1.3); POTASSIUM 4.2 mmol/L (3.5-5.1)
--- NOTE | 2019-06-26 14:33 | NUR ---
Nutrition: Pt seen due to high risk screen for poor intake and weight loss. Pt reports a 7# or 3% UBW loss within the past 2 weeks. Current BMI 32, obesity class 1. Hx of lung CA undergoing chemo. Reports appetite has been fine and is eating > 75% of meals. Does c/o some taste alterations. Enjoyed ensure at home and would like to receive BID here. RD will order per request. Able to order meals. Consider low nutrition risk.
--- NOTE | 2019-06-26 17:51 | NUR ---
ASSUMMED PT CARE AT APPROXIMATELY 0700. PT A&O X4. FALL PRECAUTIONS IN PLACE. ASSESSMENT CHARTED. PT DENIES HAVING CHEST PAIN. PT DENIES HAVING SOB. PT DENIES HAVING ACUTE PAIN. PT AMBULATES STEADY/INDEPENDENT. VITAL SIGNS STABLE. PT AFEBRILE. PT UP TO CHAIR THROUGHOUT SHIFT. PT COMFORTABLE IN BED. PT AND FAMILY EDUCATED ON POC. PT AND FAMILY STATED UNDERSTANDING AND DENIED HAVING FURTHER QUESTIONS. PT STATED HAVING NO FURTHER CONCERNS.
--- NOTE | 2019-06-27 02:37 | NUR ---
ASSESSMENTS CHARTED. MEDS GIVEN CHARTED. PATIENT UP AT EARLINE IN ROOM DURING SHIFT. DENIES CONCERNS OR PAIN. ON ROOM AIR. ORIGINAL IV INFILTRATED, NEW IV PLACED. PLAN OF CARE IS TO CONTINUE ANTIBIOTIC TREATMENTS, RESPIRATORY TREATMENTS AND MUCINEX. FALL PRECAUTIONS IN PLACE.
[2019-06-27 04:28] VITALS: BP 103/58
[2019-06-27 05:21] LABS: HEMATOCRIT 28.2 % (42.0-52.0); HEMOGLOBIN 9.1 gm/dL (14.0-18.0); MCH 34.7 pg (26.0-34.0); MCHC 32.5 g/dL (28.0-37.0); MCV 106.7 fL (80.0-100.0); RBC 2.64 mil/uL (4.50-6.00); RDW 18.9 % (10.5-14.5); WBC 10.4 thou/uL (4.0-11.0)
[2019-06-27 05:26] LABS: CALCIUM 8.7 mg/dL (8.5-10.1); CREATININE 1.1 mg/dL (0.7-1.3); POTASSIUM 3.9 mmol/L (3.5-5.1)
--- NOTE | 2019-06-27 07:03 | HC ---
[facility] [place] [address] CONSULTATION Name: ASHLYENIRANJANLESLIE Room #: 200-I ADM IN M.R.#: [id number] Admission: 06/25/19 Attend Phys: Atul June MD Discharge: Date of : 57 Report #: [id number] THIS REPORT FOR: //name// CC: Lalo Vogt DO DATE OF SERVICE: 06/26/2019 REASON FOR CONSULTATION: History of recurrent adenocarcinoma of the lung, on chemotherapy. HISTORY OF PRESENT ILLNESS: The patient is a very pleasant 64-year-old gentleman that I met about a year and a half ago. He has a history of stage 3 adenocarcinoma of the lung. Unfortunately, it had recurred and has now been on chemotherapy, Taxol and maybe another agent, the patient is not sure. He has had 4 cycles, given every 3 weeks, last given 2 weeks ago. According to him, his CAT scan that showed very good response. He gives about a 3-4 day history of a cough that is productive and clear and then colored phlegm and a fever, last night he has had 101.8. He is also formal retired. He denies any headache, any skin rash, any sinus drainage, any sore throat. Does occasionally have blisters on his lower lip on the inside that comes with chemo that about pin head in size. No nausea, no vomiting. No diarrhea, no constipation, no blood in his urine or stool. Does have a little bit of barely some ankle swelling, the right ankle. This is above an area of trauma that he had before. His energy has been a little bit decreased lately. He maybe has a little bit of neuropathy, not bad. Vision is okay. No definite chills, just felt hot. PAST MEDICAL HISTORY: Notable for history of the left-sided non-small cell lung cancer from about 04/2017. He had quit smoking in 1992. I believe he had carboplatin, Taxol and radiation completed 08/22/2017, it had recurrence sometime ago, on chemotherapy. Also, he has a history of pulmonary embolism, on Eliquis, also has a history of gout, also has a history of a GI bleed back in 10/2018, thought related to diverticula and external hemorrhoids, had an evaluation by GI and endoscopy at that time. 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 Stopped smoking in 1992 as I mentioned, minimal alcohol if any. FAMILY HISTORY: No one else diagnosed with cancer that he is aware of. MEDICATIONS: At this time in the hospital currently include fluticasone daily, allopurinol 300 daily, metoprolol 50 daily, apixaban 5 b.i.d., azithromycin [address] [address] CONSULTATION Name: NIRANJAN RAMIREZPH Room #: 200-I ADM IN .R.#: [id number] Admission: 06/25/19 Attend Phys: Atul June MD Discharge: Date of : 57 Report #: [id number] daily, ceftriaxone 1 gram daily, guaifenesin 1200 b.i.d., ipratropium and albuterol respiratory therapy q.4, benzocaine menthol lozenges q.2 p.r.n., Tylenol p.r.n., MiraLax daily, Zofran p.r.n., Albuterol respiratory therapy. PHYSICAL EXAMINATION: VITAL SIGNS: Height is 5 feet 11, 180.3 cm that is 235 pounds or 106.6 kilograms. He has been afebrile since then though he was up to 99.7 on admit. He has last temperature of 97.9 currently. Pulse is slightly high at 110, respirations 20, BP recently 98/58. MOOD: The patient is alert and pleasant and conversant. NEUROLOGIC: Face is symmetrical. Speech and thought pattern normal. Moving all extremities. HEENT: Oropharynx without any definite injection or erythema. LUNGS: Do have some slight soft rhonchi in the bases, left more than right with deep breath. No wheezes. His breathing is symmetrical and unlabored. There is a slight cough. LYMPHATICS: No enlarged lymph nodes in the supraclavicular, cervical, axillary or inguinal region. ABDOMEN: Slightly obese, nontender. No masses. EXTREMITIES: Without clubbing, cyanosis. There is trace edema of the right ankle. Note there is evidence of past trauma from about 35 years ago, right below at the right ankle. LABORATORY DATA: Lab review here shows a creatinine of 1.1, glucose was slightly high at 194 this morning. AST was slightly high at 44, ALT was 15, albumin is 2.7. White count 8.3, hemoglobin 9.7, platelets are 91. They were 94 yesterday. ANC yesterday was 5.2. Influenza A, B swab was negative. UA was very negative. Other cultures pending. ASSESSMENT AND PLAN: 1. History of recurrent adenocarcinoma of lung, recently on Taxol and responding. Unclear if he may be on another medication, would be due next week, will likely be postponed a week. We will notify his doctor through this note. 2. Fever and cough and chest x-ray changes consistent with pneumonitis/pneumonia. Agree with cultures and Zithromax and ceftriaxone. Also for pneumonia aerosol treatments. 3. History of gout. Continue allopurinol. 4. History of pulmonary embolism. Continue his Eliquis. 5. Hypertension. Continues on beta mildred and amlodipine. 6. Hypoalbuminemia. Continue supportive measures with nutrition. We will follow. <ELECTRONICALLY SIGNED> By: Luis Juárez MD 06/27/19 [phone] Luis Juárez MD /nt
[2019-06-27 07:28] VITALS: BP 98/58
[2019-06-27 08:19] VITALS: BP 96/81
[2019-06-27 16:48] VITALS: BP 117/81
--- NOTE | 2019-06-27 17:15 | NUR ---
ASUMMED PT CARE AT APPROXIMATELY 0700. PT A&O X4. FALL PRECAUTIONS IN PLACE. ASSESSMENT CHARTED. PT DENIES CHEST PAIN. PT DENIES SOB. PT DENIES ACUTE PAIN. PT UP AD EARLINE- PT STEADY/INDEPENDENT WHEN WALKING. PT TOLERATED WALKING AROUND UNIT TODAY. PT AND FAMILY EDUCATED ABOUT POC. PT AND FAMILY STATED UNDERSTANDING AND DENIED HAVING FURTHER QUESTIONS. PT COMFORTABLE IN CHAIR.
[2019-06-27 19:46] VITALS: BP 129/79
[2019-06-28 04:07] VITALS: BP 105/61
--- NOTE | 2019-06-28 08:32 | NUR ---
[facility] 1900. PT/VITALS STABLE.TACHY ESPECIALLY WITH ACTIVITY. ADEQUATE REST NOTED. ADEQUATE URINE OUTPUT. PLAN IS TO CONTINUE WITH ABX. WILL CONTINUE TO MONITOR AND FOLLOW WIHT POC
[2019-06-28 08:35] VITALS: BP 116/74
[2019-06-28 11:15] VITALS: BP 107/70
[2019-06-28] MEDS ORDERED: MUCINEX600 MG PO (12:17)
[2019-06-28] MEDS ORDERED: CEFDINIR300 MG PO (12:18)
[2019-06-28] MEDS ORDERED: PROAIR HFA8.5 GM INH (12:18)
[2019-06-28 12:37] VITALS: BP 107/70
--- NOTE | 2019-06-28 14:29 | NUR ---
RECEIVED PT'S CARE AT 1930; PT. ON CHAIR; AOX4; DURING ASSESSMENT NO C/O PAIN; HAVING BREAKFAST; HR ABOVE 100s; PHYSICIAN AWARE; AM MEDICATION GIVEN; ASKED WHEN IV FLUIDS MAYBE D/C; EDUCATED ABOUT PHYSICIAN MAKES DECISION BASED ON LABS & MEDICAL CONDITION; ST. [facility]ING; AROUND [address] AT THE BED SIDE; COMMUNICATED PT. WOULD BE D/C; PT. [facility]. UNDERSTANDING; D/C ORDERS ON; D/C ASSESSMENT PERFORM; EDUCATED ABOUT PRESCRIBED ORDERS; INFORMATION GIVEN ON PAPER; EXPLAINED INFORMATION ON D/C PAPERS; [facility]. UNDERSTANDING; IV D/C; MONITOR D/C; TRANSPORTATION REQUESTED;
== END 2019-06-28 14:39 | disposition home or self-care (01) | DRG 193 ==
LOC: ER 18:39 → 2N 20:09 → EROBS 20:09 → 2N 21:57 → ENTRNSPT 06-28 14:15 → EDTRNSPTSTS 06-28 14:21 → 2N 06-28 14:39
PROVIDERS: Nurse Practitioner Family; ADMIT Hospitalist
DX: J18.9 Pneumonia, unspecified organism (principal); E43 Unspecified severe protein-calorie malnutrition; C34.90 Malignant neoplasm of unspecified part of unspecified bronchus or lung; M10.9 Gout, unspecified; I10 Essential (primary) hypertension; E88.09 Other disorders of plasma-protein metabolism, not elsewhere classified; D64.9 Anemia, unspecified; Z87.891 Personal history of nicotine dependence
CPT/HCPCS: 10081

== ENCOUNTER 2019-07-14 12:26 | Emergency (ER) | payer BC ==
[~2019-07-14] VITALS: Ht 180.3 cm; Wt 106.6 kg
[~2019-07-14 12:26] MED LIST changes: +PROAIR HFA8.5 GM INH
[2019-07-14 15:14] LABS: HEMATOCRIT 30.6 % (42.0-52.0); MCHC 32.7 g/dL (28.0-37.0); RBC 2.86 mil/uL (4.50-6.00); RDW 19.1 % (10.5-14.5); WBC 4.1 thou/uL (4.0-11.0)
[2019-07-14 15:22] LABS: APTT 28.2 Seconds (24.5-32.8); INR 1.1
[2019-07-14 15:24] LABS: ALBUMIN 2.6 g/dL (3.4-5.0); CALCIUM 8.8 mg/dL (8.5-10.1); CREATININE 0.8 mg/dL (0.7-1.3); TOTAL BILIRUBIN 0.5 mg/dL (<0.1-1.0); TOTAL PROTEIN 5.6 g/dL (6.4-8.2)
[2019-07-14 15:41] LABS: POTASSIUM 3.7 mmol/L (3.5-5.1)
[2019-07-14 16:51] VITALS: BP 122/68
== END 2019-07-14 17:20 | disposition home or self-care (01) ==
LOC: ER 12:26
PROVIDERS: Emergency Medicine
DX: L60.8 Other nail disorders (principal); T45.1X5A Adverse effect of antineoplastic and immunosuppressive drugs, initial encounter; C34.90 Malignant neoplasm of unspecified part of unspecified bronchus or lung; M10.9 Gout, unspecified; Z86.711 Personal history of pulmonary embolism; Z87.891 Personal history of nicotine dependence

== ENCOUNTER 2020-06-19 16:32 | Emergency (ER) | payer OTHER ==
[~2020-06-19] VITALS: Ht 185.4 cm; Wt 106.6 kg
[2020-06-19 17:31] LABS: URINE BILIRUBIN 1+ (Negative); URINE BLOOD 3+ (Negative); URINE CLARITY CLEAR; URINE COLOR YELLOW; URINE GLUCOSE-RANDOM* NEGATIVE (Negative); URINE KETONES NEGATIVE (Negative); URINE LEUKOCYTES-REFLEX TRACE (Negative); URINE NITRITE-REFLEX NEGATIVE (Negative); URINE PROTEIN (DIPSTICK) 1+ (Negative)
[2020-06-19 17:32] LABS: ICTOTEST (BILI CONFIRMATORY) Negative (Negative)
[2020-06-19 17:41] LABS: CASTS None Seen /LPF (None Seen); CRYSTALS None Seen /LPF (None Seen); SQUAMOUS 0-3 Few /LPF (0-3)
[2020-06-19 17:42] LABS: BACTERIA-REFLEX 1-9 Few /HPF (None Seen); URINE RBC >20 Many /HPF (0-2); URINE WBC-REFLEX 0-5 Rare /HPF (0-5)
[2020-06-19 19:38] LABS: ABSOLUTE NEUTROPHILS 4.3 thou/uL (1.4-8.2); BASOPHILS 0.3 % (0.0-2.0); HEMATOCRIT 37.5 % (42.0-52.0); HEMOGLOBIN 12.5 gm/dL (14.0-18.0); LYMPHOCYTES 22.9 % (24.0-44.0); MCH 35.4 pg (26.0-34.0); MCHC 33.3 g/dL (28.0-37.0); MCV 106.3 fL (80.0-100.0); MONOCYTES 7.7 % (1.0-8.0); PLATELET COUNT 122 thou/uL (150-400); POLYS 69.1 % (36.0-66.0); RBC 3.53 mil/uL (4.50-6.00); RDW 15.8 % (10.5-14.5); WBC 6.2 thou/uL (4.0-11.0)
[2020-06-19 19:42] LABS: CALCIUM 9.4 mg/dL (8.5-10.1); POTASSIUM 4.3 mmol/L (3.5-5.1)
[2020-06-19 20:44] VITALS: BP 127/90
== END 2020-06-19 20:44 | disposition home or self-care (01) ==
LOC: ER 16:32
PROVIDERS: Emergency Medicine
DX: R05 Cough (principal); Z20.828 Contact with and (suspected) exposure to other viral communicable diseases; R31.9 Hematuria, unspecified; R43.9 Unspecified disturbances of smell and taste; I10 Essential (primary) hypertension; Z86.711 Personal history of pulmonary embolism; Z85.118 Personal history of other malignant neoplasm of bronchus and lung; Z79.899 Other long term (current) drug therapy; Z87.891 Personal history of nicotine dependence

== ENCOUNTER 2020-06-21 11:31 | Emergency (ER) | payer OTHER ==
[~2020-06-21] VITALS: Ht 154.9 cm; Wt 106.6 kg
[2020-06-21 14:00] VITALS: BP 136/84
== END 2020-06-21 14:00 | disposition home or self-care (01) ==
LOC: ER 11:31
DX: R04.0 Epistaxis (principal); I10 Essential (primary) hypertension; Z86.711 Personal history of pulmonary embolism; Z85.118 Personal history of other malignant neoplasm of bronchus and lung; Z79.899 Other long term (current) drug therapy; Z87.891 Personal history of nicotine dependence

== ENCOUNTER 2020-08-31 17:22 | Emergency (ER) | payer BC ==
[~2020-08-31] VITALS: Ht 185.4 cm; Wt 106.6 kg
--- NOTE | ~2020-08-31 | EMS ---
[address] [address] EMS Patient Care Report Name: ANUJ RAMIREZ Room #: REG BRYAN Galdamez#: [id number] Admission: 08/31/20 Attend Phys: Discharge: Date of : 57 Report #: [id number] THIS REPORT FOR: //name// Report Transmitted: 08/31/2020 17:05 EMS Care Summary [place], [place]/[facility] Incident [id number] @ 08/31/2020 16:55 Incident Location [address] [place], [place] [id number] Patient ANUJ RAMIREZ Male, 65 Years 1955 Patient Address [address] [place], [place] [id number] Patient History Smoking,Lung Cancer, Patient Allergies No known allergies, Patient Medications Eliquis, Metoprolol, Chief Complaint NOSE BLEED Disposition Transported No Lights/[place] Dispatch Reason Sick Person Transported To [facility] Narrative PT SITTING ON COUCH. PT IS ALERT ABLE TO SPEAK WITHOUT ANY PROBLEMS. PT STATES HE SNEEZED ABOUT 90 MINUTES AGO AND HISNOSE BEGAN TO BLEED. PT HAS TRIED TO STOP THE BLEEDING SINCE THEN. PT HAS GAUZE IN THE RIGHT NARE AND IT IS OOZING BLOOD SLOWLY. PT STATES HE CAN FEEL BLOOD GO DOWN HIS THROAT SOMETIMES AND HE [address] [address] EMS Patient Care Report Name: ANUJ RAMIREZ Room #: REG BRYAN Galdamez#: [id number] Admission: 08/31/20 Attend Phys: Discharge: Date of : 57 Report #: [id number] SPITS IT OUT. PT DENIES ANY TROUBLE BREATHING. PT DENIES TRAUMA, DIZZINESS, LOSS OF CONC OR PAIN ANYWHERE. PT NOSE BLEED MAINTAINED A SLOW DRIZZLE EN ROUTE. CHANGED A 5X9 ONCE. Initial Vitals @17:08P: 110,R: 14,BP: 120/77,Pain: 0/10,GCS: 15,SpO2: 97,Revised Trauma: 12, @17:15P: 104,R: 14,BP: 124/70,Pain: 0/10,GCS: 15,SpO2: 98,Revised Trauma: 12, Assessments @17:05MENTAL:Person Oriented,Time Oriented,Event Oriented,Place Oriented,SKIN:HEENT:Head/Face: Other,Neck/Airway: No Abnormalities,LUNG SOUNDS:General: No Abnormalities,Left Upper: No Abnormalities,Right Upper: No Abnormalities,Left Lower: No Abnormalities,Right Lower: No Abnormalities,ABDOMEN:General: No Abnormalities,Left Upper: No Abnormalities,Right Upper: No Abnormalities,Left Lower: No Abnormalities,Right Lower: No Abnormalities,PELVIS//GI:No Abnormalities,EXTREMITIES:Left Arm: No Abnormalities,Right Arm: No Abnormalities,Left Leg: No Abnormalities,Right Leg: No Abnormalities,PULSE:NEURO:No Abnormalities, Impression Epistaxis Timeline 16:53,Call Received 16:53,Dispatch Notified 16:55,Dispatched 16:55,En Route 17:03,On Scene 17:04,At Patient 17:08,BP: 120/77 M,PULSE: 110,RR: 14 R,SPO2: 97 Ox,ETCO2: ,BG: ,PAIN: 0,GCS: 15, 17:10,Depart Scene 17:15,BP: 124/70 M,PULSE: 104,RR: 14 R,SPO2: 98 Ox,ETCO2: ,BG: ,PAIN: 0,GCS: 15, 17:18,At Destination 17:31,Call Closed Disclaimer v1.1 Copyright 2020 [employer] This EMS Care Summary contains data elements from the applicable legal record (which may be displayed differently). It is designed to provide pertinent information for the following purposes: continuity of care, clinical quality, and state data reporting. The complete legal record is available to ED staff and administrators of the receiving hospital in [employer] Patient Tracker. All data is provided "as is."
[2020-08-31 18:28] LABS: HEMOGLOBIN 9.4 gm/dL (14.0-18.0)
[2020-08-31 18:30] LABS: HEMATOCRIT 28.7 % (42.0-52.0); MCH 34.9 pg (26.0-34.0); MCV 106.1 fL (80.0-100.0); PLATELET COUNT 41 thou/uL (150-400); RDW 19.3 % (10.5-14.5)
[2020-08-31 18:39] LABS: CREATININE 0.9 mg/dL (0.7-1.3)
[2020-08-31 18:40] LABS: WBC 0.9 thou/uL (4.0-11.0)
[2020-08-31 18:42] LABS: APTT 47.6 Seconds (24.5-32.8); INR 1.1; PROTIME 11.2 Seconds (9.3-11.4)
[2020-08-31 19:10] LABS: ABSOLUTE NEUTROPHILS 0.2 thou/uL (1.4-8.2); LARGE PLATELETS FEW; METAMYELOCYTES 10 %; PLATELET ESTIMATE DECREASED
[2020-08-31 19:11] LABS: ANISOCYTOSIS 2+; MACROCYTES 1+
[2020-08-31] MEDS ORDERED: AUGMENTIN 875-1 EACH PO (19:43)
[2020-08-31 20:10] VITALS: BP 109/69
== END 2020-08-31 20:10 | disposition home or self-care (01) ==
LOC: ER 17:22
PROVIDERS: Emergency Medicine
DX: R04.0 Epistaxis (principal); D72.819 Decreased white blood cell count, unspecified; D69.6 Thrombocytopenia, unspecified; C34.90 Malignant neoplasm of unspecified part of unspecified bronchus or lung; Z79.01 Long term (current) use of anticoagulants; I10 Essential (primary) hypertension; Z86.711 Personal history of pulmonary embolism; Z87.891 Personal history of nicotine dependence; Z79.899 Other long term (current) drug therapy

== ENCOUNTER 2020-10-03 14:50 | Emergency (ER) | payer OTHER ==
[~2020-10-03] VITALS: Ht 185.4 cm; Wt 106.6 kg
[~2020-10-03 14:50] MED LIST changes: +AUGMENTIN 875-1 EACH PO
[2020-10-03 16:16] LABS: ABSOLUTE NEUTROPHILS 4.2 thou/uL (1.4-8.2); BASOPHILS 0.3 % (0.0-2.0); EOSINOPHILS 0.1 % (0.0-3.0); HEMATOCRIT 29.6 % (42.0-52.0); HEMOGLOBIN 9.5 gm/dL (14.0-18.0); LYMPHOCYTES 17.9 % (24.0-44.0); MCH 34.3 pg (26.0-34.0); MCHC 32.1 g/dL (28.0-37.0); MONOCYTES 7.1 % (1.0-8.0); PLATELET COUNT 132 thou/uL (150-400); POLYS 74.6 % (36.0-66.0); RBC 2.76 mil/uL (4.50-6.00); RDW 21.1 % (10.5-14.5); WBC 5.6 thou/uL (4.0-11.0)
[2020-10-03 16:25] LABS: ANION GAP 6 mmol/L (7-16); BUN 9 mg/dL (7-18); CALCIUM 8.7 mg/dL (8.5-10.1); CHLORIDE 106 mmol/L (98-107); CO2 28 mmol/L (21-32); CREATININE 0.9 mg/dL (0.7-1.3); GLUCOSE 95 mg/dL (74-106); POTASSIUM 3.9 mmol/L (3.5-5.1); SODIUM 140 mmol/L (136-145)
[2020-10-03 16:37] LABS: ALBUMIN 2.3 g/dL (3.4-5.0); SGOT 29 U/L (15-37); SGPT 17 U/L (16-63); TOTAL BILIRUBIN 0.4 mg/dL (0.2-1.0); TOTAL PROTEIN 5.4 g/dL (6.4-8.2); TROPONIN-I <0.06 ng/mL (<0.06)
[2020-10-03 16:50] LABS: PLATELET ESTIMATE SLIGHTLY DECREASED
[2020-10-03 16:51] LABS: ANISOCYTOSIS 2+
[2020-10-03 16:52] LABS: MACROCYTES 2+; POLYCHROMASIA 1+
[2020-10-03] MEDS ORDERED: AUGMENTIN 875-1 EACH PO ×2 (16:55→17:17)
[2020-10-03] MEDS ORDERED: ZPAK PO ×2 (16:55→17:17)
[2020-10-03 17:34] VITALS: BP 116/90
--- NOTE | 2020-10-04 09:03 | EKG ---
[address] [place] [address] [place] [address] ELECTROCARDIOGRAM REPORT Name: ANUJ RAMIREZ Room #: DEP BRYAN Galdamez#: [id number] Admission: 10/03/20 Attend Phys: Discharge: 10/03/20 Date of : 57 Report #: [id number] [facility] ED Test Date: 2020-10-03 Test Time: 15:06:25 Pat Name: ANUJ RAMIREZ Department: Room: Gender: M [employer] Associate: RACHANA : 1955 Requested By: Beny Garcia Order Number: [id number] MD: Jose Roberto Jesus Measurements Intervals [place] Rate: 95 P: -14 PA: 148 QRS: 2 QRSD: 92 T: 35 QT: 371 QTc: 467 Interpretive Statements Sinus rhythm Low voltage, extremity leads Baseline wander in lead(s) V4 Compared to ECG 12/30/2018 22:15:21 Low QRS voltage now present Sinus tachycardia no longer present Electronically Signed On 10-04-2020 9:03:27 SUBCONTRACT MANAGER by Jose Roberto Jesus [email or web address] <ELECTRONICALLY SIGNED> By: Jose Roberto Jesus MD 10/04/20 [id number] [id number] Jose Roberto Jesus MD /SVETLANA
== END 2020-10-03 17:34 | disposition home or self-care (01) ==
LOC: ER 14:50
PROVIDERS: Emergency Medicine
DX: J18.9 Pneumonia, unspecified organism (principal); Z20.828 Contact with and (suspected) exposure to other viral communicable diseases; M10.9 Gout, unspecified; I10 Essential (primary) hypertension; Z87.891 Personal history of nicotine dependence; Z79.899 Other long term (current) drug therapy; Z86.711 Personal history of pulmonary embolism; Z85.118 Personal history of other malignant neoplasm of bronchus and lung; Z79.01 Long term (current) use of anticoagulants

== ENCOUNTER 2020-11-06 09:08 | Inpatient (IN) | payer OTHER ==
[~2020-11-06] VITALS: Ht 182.9 cm; Wt 106.6 kg
--- NOTE | ~2020-11-06 | HC ---
[facility] [place] [address] CONSULTATION Name: ANUJ RAMIREZ Room #: 363[facility] IN M.R.#: [id number] Admission: 11/06/20 Attend Phys: Fabio Pickering MD Discharge: Date of : 57 Report #: [id number] THIS REPORT FOR: cc: Joyce Vogt Mohammad K. DO Nichols, Jon C. MD ~ DATE OF SERVICE: 11/09/2020 GI CONSULTATION REASON FOR CONSULTATION: Rectal bleeding. BACKGROUND: The patient is a 65-year-old male with a complicated recent past medical history, undergoing treatment for lung cancer. He developed burning with urination and fevers with temperatures are 102.9 prior to admission 11/06/2020 and was found to have a urinary tract infection. Infectious Disease was consulted and is involved in his care. He relates that he had last received chemotherapy for lung cancer within the past week and laboratory studies usually will decrease during this period of time. This a.m., he had a bowel movement with solid stool present and passage of bright red blood with an estimate of 1/4 cup. He then noted some more bleeding after wiping. He had no associated abdominal pain at the time of this episode. He might comment that he had a little upper abdominal discomfort. He has had no dyspeptic symptoms or discomfort with eating. He denies any fevers or chills. He is not used or required stimulant laxatives recently. He relates that he had been evaluated by Gastroenterology 3 years ago with bleeding and believes that the cause for this may have been diverticulosis. PAST MEDICAL HISTORY: He was diagnosed with lung cancer in July 2020 and relates that he has undergone chemo and radiation treatment. He had not had any known problems with his chemotherapy except for decrease in blood counts, but no report of infections prior to recent diagnosis with a urinary tract infection. He has been on Eliquis due to his previous history of pulmonary embolus that he estimates was 2 years ago. He does have history of hypertension, gout, and thrombocytopenia. MEDICATIONS: Metoprolol 50 mg per day, allopurinol 300 mg per day, pantoprazole 40 mg p.o. every day, Zosyn 3.375 IV q.8 hours, Eliquis 5 mg p.o. b.i.d., ondansetron p.r.n., and hydrocodone p.r.n., acetaminophen p.r.n. ALLERGIES: No known drug allergies. SOCIAL HISTORY: He is a former smoker. He does [place] [address] CONSULTATION Name: ANUJ RAMIREZ Room #: 363-P [facility] IN M.R.#: [id number] Admission: 11/06/20 Attend Phys: Fabio Pickering MD Discharge: Date of : 57 Report #: [id number] FAMILY HISTORY: No known family history of colon polyps or colon cancer. PHYSICAL EXAMINATION: GENERAL: He did have fevers prior to his hospitalization, but he has been afebrile since 11/06/2020. HEENT: No scleral icterus. NECK: Supple, without lymphadenopathy. CHEST: Port-A-Cath is present in right upper chest. CARDIOVASCULAR: Heart rate and rhythm regular. Anterior lung glez clear. ABDOMEN: Soft, nondistended with no obvious hepatosplenomegaly or palpable mass. He exhibits no focal tenderness to palpation. EXTREMITIES: He does have bilateral peripheral edema, 1-2+, more prominent in the right lower extremity. LABORATORY DATA: On 11/09/2020, white blood cell count 2.1, hemoglobin 8.6, MCV 105.3, platelet count 56,000. Note that after report of bleeding, he had another hemoglobin at noon, which was 9.0. Metabolic profile this morning included potassium 3.3, BUN 13, creatinine 0.8. Albumin 1.8. Most recent chest x-ray 11/06/2020 revealed bilateral lower lung infiltrates without change, small left pleural effusion and a mass-like opacity in the left mid lung, stable. IMPRESSION: 1. Acute hematochezia, may be related to diverticular bleed, hemorrhoids, or other. Amount of bleeding may be more prominent with maintenance on anticoagulant such as Eliquis and due to his thrombocytopenia. 2. Lung cancer, followed by Oncology with history of radiation and chemotherapy. 3. Coagulopathy with maintenance on Eliquis due to his previous history of pulmonary embolus. 4. Thrombocytopenia. 5. Peripheral edema. RECOMMENDATIONS: 1. Monitor H and H. 2. If he had continued signs of active bleeding, we may consider nuclear medicine bleeding scan to localize site and/or colonoscopy. 3. Eliquis was placed on hold at this time, per hospitalist. By: 1342 1430 Mayo Berger MD /nt
[~2020-11-06 09:08] MED LIST changes: +ZPAK PO
[2020-11-06 09:09] VITALS: BP 123/78
[2020-11-06] MEDS ORDERED: DOXYCYCLINE HY100 M3 PO (09:20)
[2020-11-06] MEDS ORDERED: AZITHROMYCIN 2250 MG PO (09:21)
[2020-11-06 10:05] LABS: URINE BILIRUBIN NEGATIVE (Negative); URINE BLOOD 2+ (Negative); URINE CLARITY CLEAR; URINE COLOR YELLOW; URINE GLUCOSE-RANDOM* NEGATIVE (Negative); URINE KETONES NEGATIVE (Negative); URINE NITRITE-REFLEX NEGATIVE (Negative); URINE PROTEIN (DIPSTICK) 1+ (Negative); URINE UROBILINOGEN 0.2 E.U./dl (0.2-1.0)
[2020-11-06 10:12] LABS: URINE LEUKOCYTES-REFLEX 2+ (Negative)
[2020-11-06 10:18] LABS: HEMATOCRIT 31.5 % (42.0-52.0); HEMOGLOBIN 10.3 gm/dL (14.0-18.0); MCH 34.3 pg (26.0-34.0); MCHC 32.8 g/dL (28.0-37.0); MCV 104.6 fL (80.0-100.0); RBC 3.01 mil/uL (4.50-6.00); RDW 21.5 % (10.5-14.5); WBC 8.6 thou/uL (4.0-11.0)
[2020-11-06 10:24] LABS: MUCUS 4-6 Moderate strn/LPF (None Seen)
[2020-11-06 10:25] LABS: BACTERIA-REFLEX >30 Many /HPF (None Seen); SQUAMOUS None Seen /LPF (0-3); URINE RBC 3-10 Few /HPF (0-2); URINE WBC-REFLEX >25 Many /HPF (0-5)
[2020-11-06 10:26] LABS: CASTS None Seen /LPF (None Seen); CRYSTALS None Seen /LPF (None Seen)
[2020-11-06 10:34] LABS: ANION GAP 8 mmol/L (7-16); BUN 18 mg/dL (7-18); CALCIUM 8.8 mg/dL (8.5-10.1); CHLORIDE 105 mmol/L (98-107); CO2 27 mmol/L (21-32); CREATININE 0.8 mg/dL (0.7-1.3); GLUCOSE 94 mg/dL (74-106); POTASSIUM 3.6 mmol/L (3.5-5.1); SODIUM 140 mmol/L (136-145)
[2020-11-06 10:41] LABS: ALBUMIN 2.1 g/dL (3.4-5.0); LIPASE 167 U/L (73-393); SGOT 24 U/L (15-37); SGPT 21 U/L (16-63); TOTAL BILIRUBIN 0.7 mg/dL (0.2-1.0); TOTAL PROTEIN 5.3 g/dL (6.4-8.2); TROPONIN-I <0.06 ng/mL (<0.06)
[2020-11-06 11:10] LABS: ABSOLUTE NEUTROPHILS 7.7 thou/uL (1.4-8.2)
[2020-11-06 11:11] LABS: PLATELET COUNT 86 thou/uL (150-400); PLATELET ESTIMATE SLIGHTLY DECREASED
[2020-11-06 12:19] VITALS: BP 104/72
[2020-11-06 16:29] VITALS: BP 119/71
[2020-11-06 16:38] VITALS: BP 122/77
[2020-11-06 17:00] VITALS: BP 131/84
--- NOTE | 2020-11-06 18:47 | NUR ---
PT ADMITTED AROUND 1700, PT ALERRT AND ORIENTED X4, DENIES ANY CHEST PAIN,NAUSEA AND VOMITTING. CARRDIAC MONITOR PLACED ON PT, ST, HR IN LOW 100'S. ROOM AIR, NO SIGNS OF RESPIRATORY DISTRESS, NON PRODUCTIVE COUGH. PT HAS A PORT, WHICH HAS BEEN ASSESSED AND HAS NS RUNNING AT 100ML/HR. ADMISSION AND ASSESSMENT COMPLETED. PT ORIENTED TO ROOM, CONSENT SIGNED. DENIES ANY QUESTIONS. NO SKIN ISSUES NOTED. CALL LIGHT AND TABLE WITHIN REACH. BED AT LOWEST LEVEL WITH ALARM ON.
[2020-11-06 21:26] VITALS: BP 113/72
[2020-11-07 05:04] VITALS: BP 121/76
[2020-11-07 05:21] LABS: BASOPHILS 0.3 % (0.0-2.0); HEMATOCRIT 25.9 % (42.0-52.0); LYMPHOCYTES 8.5 % (24.0-44.0); MCH 33.8 pg (26.0-34.0); MCV 105.4 fL (80.0-100.0); MONOCYTES 0.6 % (1.0-8.0); PLATELET COUNT 65 thou/uL (150-400); POLYS 90.6 % (36.0-66.0); RBC 2.45 mil/uL (4.50-6.00); RDW 21.3 % (10.5-14.5)
[2020-11-07 05:25] LABS: HEMOGLOBIN 8.3 gm/dL (14.0-18.0)
[2020-11-07 05:35] LABS: CALCIUM 8.2 mg/dL (8.5-10.1); CREATININE 0.8 mg/dL (0.7-1.3); MAGNESIUM 1.7 mg/dL (1.8-2.4); POTASSIUM 3.9 mmol/L (3.5-5.1)
--- NOTE | 2020-11-07 08:15 | HC ---
[facility] [place] [address] CONSULTATION Name: ANUJ RAMIREZ Room #: [address] [place] [address] IN M.R.#: [id number] Admission: 11/06/20 Attend Phys: Fabio Pickering MD Discharge: Date of : 57 Report #: [id number] THIS REPORT FOR: cc: Joyce Vogt Mohammad K. DO Barry, Joseph W. MD ~ DATE OF SERVICE: 11/06/2020 INFECTIOUS DISEASE CONSULTATION ATTENDING PHYSICIAN: Dr. Pickering. REASON FOR EVALUATION: Complicated urinary tract infection, complicated by stage IV lung cancer with recent chemotherapy. HISTORY OF PRESENT ILLNESS: Chart reviewed, patient examined. This is a 65-year-old gentleman as noted above with latter-stage lung cancer. He has been on chemotherapy for roughly 4 years. He gets treatment every 3 weeks, most recently earlier this week was treated. Subsequently, he developed burning with urination, fevers, was noted temperature to 102.9 on admission with hemodynamic instability. Additionally, he has had ongoing issues with dyspnea, cough productive of generally clear sputum. Notably was hospitalized in October of this year, was diagnosed with pneumonitis. He notes he intermittently has poor p.o. intake, although his weight has been stable. Denies significant gastrointestinal-related complaints. He was empirically started with combination antibiotics, Zosyn and vancomycin. Initially, urinalysis showed greater than 25 white cells, greater than 30 bacteria. It is notable white count is in the normal range at 8.6. Procalcitonin of 0.4. He is currently requiring no supplemental oxygen. ALLERGIES: None known. MEDICATIONS: Currently include metoprolol, allopurinol, pantoprazole, apixaban, vancomycin, Zosyn, ipratropium, albuterol inhaler, hydrocodone, acetaminophen, p.r.n. analgesics, antiemetics, dexamethasone. PAST MEDICAL HISTORY: As described above, stage IV lung cancer, hypertension, history of pulmonary embolus, gout, thrombocytopenia. SOCIAL HISTORY: Former smoker. No ethanol. No illicit drug use. FAMILY HISTORY: Noncontributory. REVIEW OF SYSTEMS: Otherwise, unremarkable. [facility] [address] [place] [address] CONSULTATION Name: ANUJ RAMIREZ Room #: 363-P [facility] IN ..#: [id number] Admission: 11/06/20 Attend Phys: Fabio Pickering MD Discharge: Date of : 57 Report #: [id number] PHYSICAL EXAMINATION: GENERAL: He is pleasant, alert and cooperative. He is in moderate distress secondary to some respiratory difficulties. He is generally lucid, appears reasonably well nourished. VITAL SIGNS: Temperature 99.9 with a T-max earlier 102.9, pulse 115, respirations 16, blood pressure 108/66. SKIN: Warm, dry. No rashes. HEENT: Normocephalic. Extraocular muscles intact. NECK: Supple. LUNGS: Diminished breath sounds. Few scattered coarse sounds. HEART: Tachycardic, regular. I do not appreciate murmur. ABDOMEN: Soft, mildly distended. No apparent tenderness, no peritoneal signs. GENITOURINARY: Deferred. RECTAL: Deferred. LABORATORY DATA: TSH 1.213. Vitamin B12 2740. Procalcitonin 0.4. CBC: White count of 8.6, H and H 10.3 and 31.5, platelets of 86, 1% bands. Electrolytes: Sodium 140, potassium 3.6, chloride 105, bicarbonate is 27, anion gap of 8, BUN and creatinine 18 and 0.8, glucose of 94. LFTs unremarkable. Albumin of 2.1, total protein 5.3. Estimated GFR of 118. Lactic acid 1.3. Chest x-ray, normal heart size and vascularity, persistent focal opacity, left perihilar lung, some patchy infiltrates in the bilateral bases, small effusion, some change significantly from 1 month ago. Urinalysis greater than 25 white cells, greater than 30 bacteria. Influenza antigen was negative. ASSESSMENT: Febrile illness, likely on the basis of complicated urinary tract infection with pyelonephritis in the setting of immune suppression. Given recent chemotherapy for latter-stage lung cancer, I agree with empiric antimicrobial therapy including primarily coverage of gram-negative, certainly at risk for other complications. Cannot entirely exclude early pneumonitis either. Do additional diagnostic testing. Coronavirus testing is pending as well, certainly adjust our regimen based on that result. We will add incentive spirometry. Monitor expectantly. Continue supportive care. <ELECTRONICALLY SIGNED> By: Girma Carolina MD 11/07/20 0815 [id number] Girma Carolina MD /nt
[2020-11-07 15:26] VITALS: BP 116/65
--- NOTE | 2020-11-07 17:05 | NUR ---
INITIAL ASSESSMENT: SW received consult for discharge planning. SW reviewed chart and spoke with nursing and attending physician. Pt was admitted from home due to UTI/sepsis. Pt is on IV abx. Hem/Onc consulted due to hx of lung cancer. Discharge home is anticipated for tomorrow. SW spoke with pt via phone. Introduced role of SW. Pt is alert/orientated x 4. Pt states he lives at home with his . Prior to admission, he was independent with ADLs. No use of DME. Pt's PCP is Dr. Joyce Vogt. Pt is aware of his discharge planned for tomorrow. Denies having any discharge needs. SW is available to assist should needs arise.
[2020-11-07 17:43] LABS: HEMATOCRIT 28.9 % (42.0-52.0); HEMOGLOBIN 9.3 gm/dL (14.0-18.0); MCH 34.1 pg (26.0-34.0); MCHC 32.4 g/dL (28.0-37.0); MCV 105.3 fL (80.0-100.0); RBC 2.74 mil/uL (4.50-6.00); RDW 21.3 % (10.5-14.5)
--- NOTE | 2020-11-07 19:23 | NUR ---
CARE TAKEN OVER AT 0700, PT ALERT AMND ORIENTED X4, DENIES ANY CHEST PAIN, NAUSEA AND VOMITTING. PT ON ROOM AIR, NO SIGNS OF DISTRESS NOTED. UP AD EARLINE, WAS UP IN THE CHAIR MOST OF THE DAY. PT USED IS, UP TO 1500. RT CHEST PORT WORKING GOOD. USES CALL LIGHT APPROPRIATELY. REPORT GIVEN TO SUSY SAPP
[2020-11-07 19:37] VITALS: BP 110/74
[2020-11-08 05:06] LABS: HEMATOCRIT 28.6 % (42.0-52.0); HEMOGLOBIN 9.1 gm/dL (14.0-18.0); MCH 33.7 pg (26.0-34.0); MCHC 31.8 g/dL (28.0-37.0); RBC 2.69 mil/uL (4.50-6.00); RDW 20.7 % (10.5-14.5); WBC 5.7 thou/uL (4.0-11.0)
[2020-11-08 05:37] LABS: CALCIUM 8.3 mg/dL (8.5-10.1); CREATININE 0.9 mg/dL (0.7-1.3); POTASSIUM 3.6 mmol/L (3.5-5.1)
[2020-11-08 07:44] VITALS: BP 121/80
[2020-11-08 15:58] VITALS: BP 109/74
--- NOTE | 2020-11-08 18:40 | NUR ---
PLEASANT WITH CARES. HE IS ALERT ORIENTED X4. RESP. EVEN NON LABORED. WILL CONT WITH PLAN OF CARE.
[2020-11-08 21:20] VITALS: BP 120/82
[2020-11-09 05:08] LABS: HEMATOCRIT 26.7 % (42.0-52.0); HEMOGLOBIN 8.6 gm/dL (14.0-18.0); MCHC 32.3 g/dL (28.0-37.0); MCV 105.3 fL (80.0-100.0); PLATELET COUNT 56 thou/uL (150-400); RBC 2.53 mil/uL (4.50-6.00); RDW 20.9 % (10.5-14.5); WBC 2.1 thou/uL (4.0-11.0)
[2020-11-09 05:27] LABS: ALBUMIN 1.8 g/dL (3.4-5.0); CALCIUM 8.2 mg/dL (8.5-10.1); CREATININE 0.8 mg/dL (0.7-1.3); POTASSIUM 3.3 mmol/L (3.5-5.1); TOTAL BILIRUBIN 0.5 mg/dL (0.2-1.0); TOTAL PROTEIN 4.7 g/dL (6.4-8.2)
[2020-11-09 05:59] LABS: ABSOLUTE NEUTROPHILS 1.5 thou/uL (1.4-8.2)
[2020-11-09 06:00] LABS: ANISOCYTOSIS 2+; MACROCYTES 1+; PLATELET ESTIMATE DECREASED
[2020-11-09 15:16] VITALS: BP 120/79
[2020-11-09 19:14] VITALS: BP 103/67
--- NOTE | 2020-11-09 19:16 | NUR ---
patient now sleeping and respirations are even non labored. he was noted to have two bloody stools. he states he has had these before but it nothing was made of them. GI consulted. he denies pain. WILL CONT WITH PLAN OF CARE.
--- NOTE | 2020-11-09 20:53 | NUR ---
PT UP IN CHAIR WATCHING TV. IVF INTACT. BLE EDEMA. PT PROVIDED HS SNACK. PT VERBALIZED UNDERSTANDING ELIQUIS ON HOLD UNTIL SEEEN BY DYLAN.
[2020-11-10 04:45] VITALS: BP 97/57
[2020-11-10 05:38] LABS: HEMOGLOBIN 8.2 gm/dL (14.0-18.0); MCV 104.3 fL (80.0-100.0); PLATELET COUNT 48 thou/uL (150-400)
[2020-11-10 05:40] LABS: HEMATOCRIT 25.4 % (42.0-52.0); MCH 33.6 pg (26.0-34.0); MCHC 32.2 g/dL (28.0-37.0); RBC 2.44 mil/uL (4.50-6.00); RDW 21.1 % (10.5-14.5)
[2020-11-10 05:49] LABS: WBC 1.1 thou/uL (4.0-11.0)
--- NOTE | 2020-11-10 05:54 | NUR ---
LAB CALLED WITH [facility] OF [facility] AT 1.1. [facility] HAVE BEEN TRENDING DOWN LAST FOUR DAYS. CALLED FORMING MACHINE TENDER WITH CRITICAL, AND NO ORDERS RECEIVED. WILL LEAVE MESSAGE FOR HEMO. FOLLOWING POC WITH IVPB ANTIBIOTICS. PT WAS TRANSFERRED TO MY CARE WHEN 3W NURSE FLOATED TO 4S. ASSESSMENT COMPLETED. PT RESTING COMFORTABLY.
[2020-11-10 06:01] LABS: ALBUMIN 1.8 g/dL (3.4-5.0); CALCIUM 8.4 mg/dL (8.5-10.1); CREATININE 0.9 mg/dL (0.7-1.3); POTASSIUM 3.3 mmol/L (3.5-5.1); TOTAL BILIRUBIN 0.6 mg/dL (0.2-1.0); TOTAL PROTEIN 4.6 g/dL (6.4-8.2)
[2020-11-10 08:16] VITALS: BP 99/67
[2020-11-10 11:01] LABS: ABSOLUTE NEUTROPHILS 0.5 thou/uL (1.4-8.2); METAMYELOCYTES 7 %; MYELOCYTES 2 %; NUCLEATED RBCS 2 /100WBC
[2020-11-10 11:02] LABS: PLATELET ESTIMATE MARKEDLY DECREASED
--- NOTE | 2020-11-10 13:19 | NUR ---
SW reviewed chart and spoke with nursing. GI consulted to evaluate pt due to rectal bleeding. Pt's Hgb is 8.2 today. WBC: 1.1. Hem/onc following. Awaiting input from GI. PT/OT evaluated pt for discharge needs. Pt lives at home with his . Prior to admission, pt was independent with ADLs. Plan is for pt to discharge home when medically stable. SW is following to assist as needed with discharge planning.
[2020-11-10 15:22] VITALS: BP 111/69
[2020-11-10 19:42] VITALS: BP 131/81
[2020-11-11 04:48] VITALS: BP 87/51
--- NOTE | 2020-11-11 05:15 | NUR ---
PT MAKING PROGRESS TOWARDS GOALS. NO FEVER NOTED OVER NIGHT. PT REPORT THAT HE FEELS "FINE." URINE JUSTIN BUT CLEAR. SEE CHARTING.
[2020-11-11 06:26] LABS: HEMOGLOBIN 8.3 gm/dL (14.0-18.0)
[2020-11-11 06:29] LABS: HEMATOCRIT 24.8 % (42.0-52.0); MCH 35.7 pg (26.0-34.0); MCHC 33.4 g/dL (28.0-37.0); MCV 106.8 fL (80.0-100.0); RBC 2.32 mil/uL (4.50-6.00); WBC 2.1 thou/uL (4.0-11.0)
[2020-11-11 08:05] VITALS: BP 126/85
--- NOTE | 2020-11-11 10:19 | NUR ---
BEGAN CARE FOR THIS PT AT SHIFT CHANGE. PT CONTINUES NEUTROPENIC PRECAUTIONS. PT UP INDEPENDENT, USING URINAL. BLE CONTINUES TO BE EDEMATOUS. 3+
[2020-11-11] MEDS ORDERED: AUGMENTIN 875-1 EACH PO (11:53)
[2020-11-11 11:57] VITALS: BP 126/85
[2020-11-11 11:59] VITALS: BP 126/85
[2020-11-11] MEDS ORDERED: PROTONIX 20 MG20 M1 PO (13:25)
[2020-11-11] MEDS ORDERED: AMOX TR-K CLV1 EAC4 PO (13:25)
--- NOTE | 2020-11-11 14:13 | NUR ---
DISCHARGE NOTE: SW reviewed chart and spoke with nursing and attending physician. Pt is medically stable for discharge home today. SW spoke with pt via phone to discuss discharge plan. Pt declines need for HH services. Pt states that his family will be able to provide transportation home. SW updated pt's nurse and attending physician. No SW needs identified at this time, but is available to assist should needs arise.
[2020-11-11 15:57] VITALS: BP 127/76
[2020-11-11 16:24] VITALS: BP 126/85
== END 2020-11-11 18:18 | disposition home or self-care (01) | DRG 871 ==
LOC: ER 09:08 → 3W 11:36 → EROBS 11:36 → 3W 17:08
PROVIDERS: Emergency Medicine; Internal Medicine; Internal Medicine Geriatric Medicine; Nurse Practitioner; Specialist; ADMIT Internal Medicine; ATTEND Internal Medicine
DX: A41.9 Sepsis, unspecified organism (principal); J18.9 Pneumonia, unspecified organism; K57.91 Diverticulosis of intestine, part unspecified, without perforation or abscess with bleeding; D61.818 Other pancytopenia; C34.90 Malignant neoplasm of unspecified part of unspecified bronchus or lung; D68.9 Coagulation defect, unspecified; N12 Tubulo-interstitial nephritis, not specified as acute or chronic; D70.1 Agranulocytosis secondary to cancer chemotherapy; M10.9 Gout, unspecified; D69.6 Thrombocytopenia, unspecified; E83.42 Hypomagnesemia; I10 Essential (primary) hypertension; T45.1X5A Adverse effect of antineoplastic and immunosuppressive drugs, initial encounter; Y92.89 Other specified places as the place of occurrence of the external cause; Z87.891 Personal history of nicotine dependence; Z92.21 Personal history of antineoplastic chemotherapy; Z79.899 Other long term (current) drug therapy; Z86.711 Personal history of pulmonary embolism
CPT/HCPCS: 10779; 10879